=== PATIENT | female | born 1970 | race Caucasian/White ===

== ENCOUNTER 2017-01-17 16:13 | Emergency (ER) | payer MEDICARE, MEDICAID ==
[2017-01-17] MEDS ORDERED: Albuterol/Ipratropium NEB.SOL* Albuterol 2.5 MG/Ipratropium 0.5 MG 3 ML INH ONE (16:48)
--- NOTE | 2017-01-17 17:29 | RAD ---
INDICATION: Cough COMPARISON: Chest x-ray dated September 16, 2016 TECHNIQUE: PA and lateral views of the chest were obtained. FINDINGS: The heart and mediastinum are normal in size and contour. The lungs are grossly clear. There is no evidence of large pleural effusion. Visualized bones are normal for the patient's age. There is no radiographic evidence of free air beneath the diaphragm IMPRESSION: No radiographic evidence of acute cardiopulmonary disease.
--- NOTE | 2017-01-17 17:39 | ED ---
Ana M Ayala Michael, scribed for Wisam Griffiths MD on 01/17/17 at 1700 . Respiratory - HPI Summary HPI Summary: 46 y/o female comes to the ED presenting with a productive cough and SOB for the last 4 days. The pt reports that the sputum is thick and yellow. She also c/ of wheezing and denies fever. The PMHx is significant for COPD. She has a home nebulizer, but the pt has not taken it because she is out of medicine. - History of Current Complaint Chief Complaint: EDShortnessOfBreath Stated Complaint: DIFFICULTY BREATHING Time Seen by Provider: 01/17/17 16:26 Hx Obtained From: Patient, Medical Records Onset/Duration: Gradual Onset, Lasting Days, Still Present Timing: Intermittent Episodes Lasting: Initial Severity: Moderate Current Severity: Moderate Character: Cough (Productive) Sputum Color: Yellow Alleviating Factor(s): Nothing Associated Signs and Symptoms: SOB, Wheezing - Allergy/Home Medications Allergies/Adverse Reactions: Allergies Allergy/AdvReac Type Severity Reaction Status Date / Time Hydromorphone Allergy Unknown Verified 01/17/17 16:28 Reaction Details PMH/Surg Hx/FS Hx/Imm Hx Endocrine/Hematology History: Reports: Hx Diabetes Denies: Hx Anticoagulant Therapy - ON HEPARIN DRIP NOW, Hx Blood Disorders, Hx Blood Transfusions, Hx Bone Marrow Disease, Hx Systemic Lupus Erythematosus, Hx Sickle Cell Disease, Hx Thyroid Disease, Hx Anemia, Hx Unexplained Bleeding, Other Endocrine/Hematological Disorders Cardiovascular History: Reports: Hx Angina, Hx Coronary Artery Disease, Hx Hypercholesterolemia Denies: Hx Aneurysm, Hx Angioplasty, Hx Auto Implanted Cardiovert Defib, Hx Cardiac Arrest, Hx Cardiomegaly, Hx Congenital Heart Disease, Hx Congestive Heart Failure, Hx Deep Vein Thrombosis, Hx Embolism, Hx Hypotension, Hx Hypertension, Hx Pacemaker/ICD, Hx Peripheral Vascular Disease, Hx Rheumatic Fever, Hx Syncope, Hx Valvular Heart Disease Respiratory History: Reports: Hx Chronic Obstructive Pulmonary Disease (COPD) Denies: Hx Asthma, Hx Chronic Bronchitis, Hx Cystic Fibrosis, Hx Lung Cancer , Hx Pleural Effusion, Hx Pneumonia, Hx Pulmonary Edema, Hx Pulmonary Embolism, Hx Seasonal Allergies, Hx Sleep Apnea GI History: Reports: Hx Gall Bladder Disease - HX YAO, Hx Gastroesophageal Reflux Disease, Other GI Disorders - GERD Denies: Hx Cirrhosis, Hx Crohn's Disease, Hx Diverticulosis, Hx Jaundice, Hx Obstructive Bowel, Hx Ileostomy, Hx Pyloric Stenosis, Hx Ulcer Musculoskeletal History: Denies: Hx Arthritis, Hx Osteoporosis Sensory History: Reports: Hx Contacts or Glasses, Hx Vision Problem Denies: Hx Cataracts, Hx Eye Injury, Hx Eye Prosthesis, Hx Glaucoma, Hx Legally Blind, Hx Macular Degeneration, Hx Deafness, Hx Hearing Aid, Hx Hearing Problem, Other Sensory Impairments Opthamlomology History: Reports: Hx Contacts or Glasses, Hx Vision Problem Denies: Hx Cataracts, Hx Eye Injury, Hx Eye Prosthesis, Hx Glaucoma, Hx Legally Blind, Hx Macular Degeneration, Other Sensory Impairments Neurological History: Reports: Hx Headaches - "I have headaches all the time", uses ibuprofen., Hx Transient Ischemic Attacks (TIA) Denies: Hx Dementia, Hx Developmental Delay, Hx Migraine, Hx Nerve Disease, Hx Seizures, Hx Spinal Cord Injury, Other Neuro Impairments/Disorders Psychiatric History: Reports: Hx Depression Denies: Hx Anxiety, Hx Attention Deficit Hyperactivity Disorder, Hx Panic Disorder, Hx Post Traumatic Stress Disorder, Hx Inpatient Treatment, Hx Community Mental Health Tx, Hx Schizophrenia, Hx Bipolar Disorder, Hx of Violent Episodes Against Others, Hx Substance Abuse, Other Psychiatric Issues/ Disorders - Cancer History Hx Chemotherapy: No Hx Radiation Therapy: No Hx Palliative Cancer Treatment: No - Surgical History Surgery Procedure, Year, and Place: [facility]. APPY. TUBAL LIGATION Hx Anesthesia Reactions: No - Immunization History Date of Tetanus Vaccine: Unk Date of Influenza Vaccine: None; became very sick after last flu vaccine Infectious Disease History: No Infectious Disease History: Denies: Hx Clostridium Difficile, Hx Hepatitis, Hx Human Immunodeficiency Virus (HIV), Hx Shingles, Hx Tuberculosis, Hx Known/Suspected VRE, Hx Known/ Suspected VRSA, History Other Infectious Disease, Traveled Outside the [place] in Last 30 Days - Family History Known Family History: Positive: Cardiac Disease, Diabetes, Respiratory Disease - Social History Occupation: Unemployed Lives: With Family Alcohol Use: Occasionally Substance Use Type: Reports: None Smoking Status (MU): Heavy Every Day Tobacco Smoker Type: Cigarettes Amount Used/How Often: 1 PPD Length of Time of Smoking/Using Tobacco: 25 YEARS Have You Smoked in the Last Year: Yes Review of Systems Negative: Fever Positive: Shortness Of Breath, Cough, Other - wheezes All Other Systems Reviewed And Are Negative: Yes Physical Exam Triage Information Reviewed: Yes Vital Signs On Initial Exam: Initial Vitals Temp Pulse Resp BP Pulse Ox 97.8 F 95 21 143/63 92 01/17/17 16:15 01/17/17 16:15 01/17/17 16:15 01/17/17 16:15 01/17/17 16:15 Vital Signs Reviewed: Yes Appearance: Positive: Well-Appearing, No Pain Distress Skin: Positive: Warm, Skin Color Reflects Adequate Perfusion, Dry Head/Face: Positive: Normal Head/Face Inspection Eyes: Positive: Normal ENT: Positive: Normal ENT inspection Neck: Positive: Supple, Nontender Respiratory/Lung Sounds: Positive: Clear to Auscultation, Wheezes Cardiovascular: Positive: RRR Abdomen Description: Positive: Nontender, Soft Bowel Sounds: Positive: Present Musculoskeletal: Positive: Normal Neurological: Positive: Normal Psychiatric: Positive: Affect/Mood Appropriate - Velma Coma Scale Coma Scale Total: 15 Diagnostics - Vital Signs Vital Signs Temp Pulse Resp BP Pulse Ox 01/17/17 16:30 97 14 98 01/17/17 16:29 18 01/17/17 16:28 96 17 97 01/17/17 16:27 122/68 01/17/17 16:15 97.8 F 95 21 143/63 92 - Laboratory Lab Statement: Any lab studies that have been ordered have been reviewed, and results considered in the medical decision making process. Disposition - Course Course Of Treatment: CXR was negative and she will be treated with biaxin, a refill for her home nebulizer and a short steroid course. - Diagnoses Provider Diagnoses: Bronchitis Discharge - Discharge Plan Condition: Stable Disposition: HOME Prescriptions: Albuterol 2.5MG/3ML (0.083%)* [Ventolin 2.5 MG/3 ML NEB.LUCY*] 2.5 mg INH Q4H # 30 neb.lucy Clarithromycin TAB* [Biaxin TAB*] 500 mg PO BID #20 tab Patient Education Materials: Acute Bronchitis (ED) Referrals: Leanne Philip MD [Primary Care Provider] - The documentation as recorded by the Ana M stoner Michael accurately reflects the service I personally performed and the decisions made by me, Wisam Griffiths MD.
[2017-01-17 17:46] VITALS: BP 144/85
== END 2017-01-17 17:44 | disposition home or self-care (01) ==
LOC: ED 16:13
DX: J40 Bronchitis, not specified as acute or chronic (principal); R06.02 Shortness of breath; R05 Cough; F17.210 Nicotine dependence, cigarettes, uncomplicated
CPT/HCPCS: 71020; 94640; 99282; A9270-GY

== ENCOUNTER 2017-07-09 12:10 | Emergency (ER) | payer MEDICARE, MEDICAID ==
[2017-07-09 12:53] LABS: Hematocrit 45 % (35-47); Hemoglobin 15.1 g/dl (12.0-16.0); Mean Corpuscular HGB Conc 34 g/dl (31-36); Mean Corpuscular Hemoglobin 31 pg (27-31); Mean Corpuscular Volume 91 fL (80-97); Mean Platelet Volume 9 um3 (7.4-10.4); Red Blood Count 4.91 10^6/ul (4.0-5.4); Red Cell Distribution Width 14 % (10.5-15); White Blood Count 8.3 10^3/ul (3.5-10.8)
--- NOTE | 2017-07-09 13:32 | RAD ---
HISTORY: Chest pain COMPARISONS: January 17, 2017 VIEWS: 4: Frontal dual-energy and lateral views of the chest. FINDINGS: CARDIOMEDIASTINAL SILHOUETTE: The cardiomediastinal silhouette is normal. DENISHA: The denisha are normal. PLEURA: The costophrenic angles are sharp. No pleural abnormalities are noted. LUNG PARENCHYMA: The lungs are clear. ABDOMEN: The upper abdomen is clear. There is no subphrenic gas. BONES AND SOFT TISSUES: No bone or soft tissue abnormalities are noted. OTHER: None. IMPRESSION: NO ACTIVE CARDIOPULMONARY DISEASE.
[2017-07-09 13:51] LABS: BUN/Creatinine Ratio 18.3 (8-20); Calcium 9.6 mg/dL (8.6-10.3); EGFR Non-African American 88.6 (>60); Globulin 3.2 g/dL (2-4); Potassium 3.7 mmol/L (3.5-5.0); Total Bilirubin 0.7 mg/dL (0.2-1.0); Total Protein 7.2 g/dL (6.4-8.9)
[2017-07-09 14:01] LABS: TSH (Thyroid Stimulating Horm) 0.45 mcIU/mL (0.34-5.60)
[2017-07-09 16:11] VITALS: BP 125/69
--- NOTE | 2017-07-11 12:07 | ED ---
Maximiliano Ayala Benjamin, scribed for Wisam Griffiths MD on 07/09/17 at 1239 . HPI Chest Pain - HPI Summary HPI Summary: 46yo female c/o mid sternal CP for 2 days. Pain radiated to her arms and pt state the pain has been constant for 2 days. Pain resolved today when she was given ASA here at the ED. Pt also reports SOB at night, also nausea and dizziness. Pt has been coughing for month with yellow sputum, and was dx with bronchitis. Pt was first rx with Z-pack 1 month ago, and then 2 days ago was rx ed with Levequin. Pt is a smoker, ans has hx of HTN, HLD, and DM. FHx of lung CA. - History of Current Complaint Chief Complaint: EDGeneral Time Seen by Provider: 07/09/17 12:19 Hx Obtained From: Patient Onset/Duration: Started Days Ago - 2 days, Still Present Timing: Constant Initial Severity: Mild Current Severity: Mild Pain Intensity: 0 Pain Scale Used: 0-10 Numeric Chest Pain Location: Mid Sternal Chest Pain Radiates: Yes Chest Pain Radiates To:: Arm - arms Aggravating Factor(s): Nothing Alleviating Factor(s): OTC Meds Associated Signs and Symptoms: Positive: Dizziness, Shortness of Breath, Nausea , Productive Cough - yellow - Additional Pertinent History Primary Care Physician: [id number] - Allergy/Home Medications Allergies/Adverse Reactions: Allergies Allergy/AdvReac Type Severity Reaction Status Date / Time Hydromorphone Allergy Unknown Verified 01/17/17 16:28 Reaction Details PMH/Surg Hx/FS Hx/Imm Hx Endocrine/Hematology History: Reports: Hx Diabetes Denies: Hx Anticoagulant Therapy - ON HEPARIN DRIP NOW, Hx Blood Disorders, Hx Blood Transfusions, Hx Bone Marrow Disease, Hx Systemic Lupus Erythematosus, Hx Sickle Cell Disease, Hx Thyroid Disease, Hx Anemia, Hx Unexplained Bleeding, Other Endocrine/Hematological Disorders Cardiovascular History: Reports: Hx Angina, Hx Coronary Artery Disease, Hx Hypercholesterolemia Denies: Hx Aneurysm, Hx Angioplasty, Hx Auto Implanted Cardiovert Defib, Hx Cardiac Arrest, Hx Cardiomegaly, Hx Congenital Heart Disease, Hx Congestive Heart Failure, Hx Deep Vein Thrombosis, Hx Embolism, Hx Hypotension, Hx Hypertension, Hx Pacemaker/ICD, Hx Peripheral Vascular Disease, Hx Rheumatic Fever, Hx Syncope, Hx Valvular Heart Disease Respiratory History: Reports: Hx Chronic Obstructive Pulmonary Disease (COPD) Denies: Hx Asthma, Hx Chronic Bronchitis, Hx Cystic Fibrosis, Hx Lung Cancer , Hx Pleural Effusion, Hx Pneumonia, Hx Pulmonary Edema, Hx Pulmonary Embolism, Hx Seasonal Allergies, Hx Sleep Apnea GI History: Reports: Hx Gall Bladder Disease - HX YAO, Hx Gastroesophageal Reflux Disease, Other GI Disorders - GERD Denies: Hx Cirrhosis, Hx Crohn's Disease, Hx Diverticulosis, Hx Jaundice, Hx Obstructive Bowel, Hx Ileostomy, Hx Pyloric Stenosis, Hx Ulcer Musculoskeletal History: Denies: Hx Arthritis, Hx Osteoporosis Sensory History: Reports: Hx Contacts or Glasses, Hx Vision Problem Denies: Hx Cataracts, Hx Eye Injury, Hx Eye Prosthesis, Hx Glaucoma, Hx Legally Blind, Hx Macular Degeneration, Hx Deafness, Hx Hearing Aid, Hx Hearing Problem, Other Sensory Impairments Opthamlomology History: Reports: Hx Contacts or Glasses, Hx Vision Problem Denies: Hx Cataracts, Hx Eye Injury, Hx Eye Prosthesis, Hx Glaucoma, Hx Legally Blind, Hx Macular Degeneration, Other Sensory Impairments Neurological History: Reports: Hx Headaches - "I have headaches all the time", uses ibuprofen., Hx Transient Ischemic Attacks (TIA) Denies: Hx Dementia, Hx Developmental Delay, Hx Migraine, Hx Nerve Disease, Hx Seizures, Hx Spinal Cord Injury, Other Neuro Impairments/Disorders Psychiatric History: Reports: Hx Depression Denies: Hx Anxiety, Hx Attention Deficit Hyperactivity Disorder, Hx Panic Disorder, Hx Post Traumatic Stress Disorder, Hx Inpatient Treatment, Hx Community Mental Health Tx, Hx Schizophrenia, Hx Bipolar Disorder, Hx of Violent Episodes Against Others, Hx Substance Abuse, Other Psychiatric Issues/ Disorders - Cancer History Hx Chemotherapy: No Hx Radiation Therapy: No Hx Palliative Cancer Treatment: No - Surgical History Surgery Procedure, Year, and Place: YAO. APPY. TUBAL LIGATION Hx Anesthesia Reactions: No - Immunization History Date of Tetanus Vaccine: Unk Date of Influenza Vaccine: None; became very sick after last flu vaccine Infectious Disease History: No Infectious Disease History: Denies: Hx Clostridium Difficile, Hx Hepatitis, Hx Human Immunodeficiency Virus (HIV), Hx Shingles, Hx Tuberculosis, Hx Known/Suspected VRE, Hx Known/ Suspected VRSA, History Other Infectious Disease, Traveled Outside the [place] in Last 30 Days - Family History Known Family History: Positive: Cardiac Disease, Diabetes, Respiratory Disease, Other - lung CA - Social History Occupation: Unemployed Lives: With Family Alcohol Use: Occasionally Substance Use Type: Reports: None Smoking Status (MU): Heavy Every Day Tobacco Smoker Type: Cigarettes Amount Used/How Often: 1 PPD Length of Time of Smoking/Using Tobacco: 25 YEARS Have You Smoked in the Last Year: Yes Review of Systems Constitutional: Negative Eyes: Negative ENT: Negative Positive: Chest Pain Positive: Shortness Of Breath, Cough Gastrointestinal: Negative Genitourinary: Negative Musculoskeletal: Negative Skin: Negative Neurological: Negative Psychological: Normal All Other Systems Reviewed And Are Negative: Yes Physical Exam Triage Information Reviewed: Yes Vital Signs On Initial Exam: Initial Vitals Temp Pulse Resp BP Pulse Ox 97.5 F 96 20 130/74 94 07/09/17 12:15 07/09/17 12:15 07/09/17 12:15 07/09/17 12:15 07/09/17 12:15 Vital Signs Reviewed: Yes Appearance: Positive: Well-Appearing, No Pain Distress, Well-Nourished Skin: Positive: Warm, Skin Color Reflects Adequate Perfusion, Dry Head/Face: Positive: Normal Head/Face Inspection Eyes: Positive: Normal, EOMI, GIDEON ENT: Positive: Normal ENT inspection, Hearing grossly normal Neck: Positive: Supple, Nontender Respiratory/Lung Sounds: Positive: Clear to Auscultation, Breath Sounds Present Cardiovascular: Positive: RRR, Pulses are Symmetrical in both Upper and Lower Extremities Abdomen Description: Positive: Nontender, Soft Bowel Sounds: Positive: Present Musculoskeletal: Positive: Normal, Strength/ROM Intact Neurological: Positive: Sensory/Motor Intact, Alert, Oriented to Person Place, Time Psychiatric: Positive: Affect/Mood Appropriate - Velma Coma Scale Coma Scale Total: 15 Diagnostics - Vital Signs Vital Signs Temp Pulse Resp BP Pulse Ox 07/09/17 12:22 99 95 07/09/17 12:21 102 96 07/09/17 12:20 133/78 07/09/17 12:15 97.5 F 96 20 130/74 94 - Laboratory Lab Results: Lab Results 07/09/17 07/09/17 07/09/17 Range/Units 12:38 12:38 12:38 WBC 8.3 (3.5-10.8) 10^3/ul RBC 4.91 (4.0-5.4) 10^6/ul Hgb 15.1 (12.0-16.0) g/dl Hct 45 (35-47) % MCV 91 (80-97) fL MCH 31 (27-31) pg MCHC 34 (31-36) g/dl RDW 14 (10.5-15) % Plt Count 238 (150-450) 10^3/ul MPV 9 (7.4-10.4) um3 Neut % (Auto) 49.0 (38-83) % Lymph % (Auto) 39.4 (25-47) % [place] % (Auto) 5.7 (1-9) % Eos % (Auto) 4.8 (0-6) % Baso % (Auto) 1.1 (0-2) % Absolute Neuts (auto) 4.1 (1.5-7.7) 10^3/ul Absolute Lymphs (auto) 3.3 (1.0-4.8) 10^3/ul Absolute Monos (auto) 0.5 (0-0.8) 10^3/ul Absolute Eos (auto) 0.4 (0-0.6) 10^3/ul Absolute Basos (auto) 0.1 (0-0.2) 10^3/ul Absolute Nucleated RBC 0.01 10^3/ul Nucleated RBC % 0.1 INR (Anticoag Therapy) 0.91 (0.89-1.11) D-Dimer, Quantitative < 200 (Less Than 230) ng/mL Sodium 131 L (133-145) mmol/L Potassium 3.7 (3.5-5.0) mmol/L Chloride 98 L (101-111) mmol/L Carbon Dioxide 24 (22-32) mmol/L Anion Gap 9 (2-11) mmol/L BUN 13 (6-24) mg/dL Creatinine 0.71 (0.51-0.95) mg/dL Est GFR ( Amer) 114.0 (>60) Est GFR (Non-Af Amer) 88.6 (>60) BUN/Creatinine Ratio 18.3 (8-20) Glucose 285 H (70-100) mg/dL Lactic Acid (0.5-2.0) mmol/L Calcium 9.6 (8.6-10.3) mg/dL Total Bilirubin 0.70 (0.2-1.0) mg/dL AST 12 L (13-39) U/L ALT 13 (7-52) U/L Alkaline Phosphatase 101 (34-104) U/L Troponin I 0.00 (<0.04) ng/mL Total Protein 7.2 (6.4-8.9) g/dL Albumin 4.0 (3.2-5.2) g/dL Globulin 3.2 (2-4) g/dL Albumin/Globulin Ratio 1.3 (1-3) TSH 0.45 (0.34-5.60) mcIU/mL Beta HCG, Quant 2.44 mIU/mL 07/09/17 07/09/17 Range/Units 12:38 15:26 WBC (3.5-10.8) 10^3/ul RBC (4.0-5.4) 10^6/ul Hgb (12.0-16.0) g/dl Hct (35-47) % MCV (80-97) fL MCH (27-31) pg MCHC (31-36) g/dl RDW (10.5-15) % Plt Count (150-450) 10^3/ul MPV (7.4-10.4) um3 Neut % (Auto) (38-83) % Lymph % (Auto) (25-47) % [place] % (Auto) (1-9) % Eos % (Auto) (0-6) % Baso % (Auto) (0-2) % Absolute Neuts (auto) (1.5-7.7) 10^3/ul Absolute Lymphs (auto) (1.0-4.8) 10^3/ul Absolute Monos (auto) (0-0.8) 10^3/ul Absolute Eos (auto) (0-0.6) 10^3/ul Absolute Basos (auto) (0-0.2) 10^3/ul Absolute Nucleated RBC 10^3/ul Nucleated RBC % INR (Anticoag Therapy) (0.89-1.11) D-Dimer, Quantitative (Less Than 230) ng/mL Sodium (133-145) mmol/L Potassium (3.5-5.0) mmol/L Chloride (101-111) mmol/L Carbon Dioxide (22-32) mmol/L Anion Gap (2-11) mmol/L BUN (6-24) mg/dL Creatinine (0.51-0.95) mg/dL Est GFR ( Amer) (>60) Est GFR (Non-Af Amer) (>60) BUN/Creatinine Ratio (8-20) Glucose (70-100) mg/dL Lactic Acid 1.9 (0.5-2.0) mmol/L Calcium (8.6-10.3) mg/dL Total Bilirubin (0.2-1.0) mg/dL AST (13-39) U/L ALT (7-52) U/L Alkaline Phosphatase (34-104) U/L Troponin I 0.00 (<0.04) ng/mL Total Protein (6.4-8.9) g/dL Albumin (3.2-5.2) g/dL Globulin (2-4) g/dL Albumin/Globulin Ratio (1-3) TSH (0.34-5.60) mcIU/mL Beta HCG, Quant mIU/mL Result Diagrams: 07/09/17 12:38 07/09/17 12:38 Lab Statement: Any lab studies that have been ordered have been reviewed, and results considered in the medical decision making process. - Radiology CXR Xray Interpretation: No Acute Changes Radiology Interpretation Completed By: Radiologist - ED physician has reviewed the radiology report and agrees with the findings. - EKG 1232. Cardiac Rate: Tachycardia - 102bpm EKG Rhythm: Sinus Tachycardia ST Segment: Non-Specific Chest Pain Course/Dx - Course Course Of Treatment: Reviewed pts list of medications and allergies. Blood pressure noted. Assessment/Plan: Ms. Dill presented with two days of CP and her W/U and PE were nonrevealing. She is stable and pain-free at D/C. - Diagnoses Provider Diagnoses: Chest pain Discharge - Discharge Plan Condition: Stable Disposition: HOME Patient Education Materials: Chest Pain (ED) Referrals: [facility] [Outside] Non Staff,Doctor [Primary Care Provider] - The documentation as recorded by the Maximiliano stoner Benjamin accurately reflects the service I personally performed and the decisions made by me, Wisam Griffiths MD.
== END 2017-07-09 16:12 | disposition home or self-care (01) ==
LOC: ED 12:10
DX: R07.9 Chest pain, unspecified (principal); R42 Dizziness and giddiness; R06.02 Shortness of breath; R11.0 Nausea; R05 Cough; F17.210 Nicotine dependence, cigarettes, uncomplicated
CPT/HCPCS: 36415; 71020; 80053; 83605; 84443; 84484; 84702; 85025; 85379; 85610; 93005; 99282

== ENCOUNTER 2018-07-02 21:23 | Inpatient (IN) | payer MEDICAID, OTHER ==
[2018-07-02] MEDS ORDERED: Iodixanol* (CONTRAST) 320 MG/ML 100 ML SDV IV ONE (21:24)
--- NOTE | 2018-07-02 21:27 | ED ---
Neurological HPI - HPI Summary HPI Summary: This patient is a 47 year old F presenting to [facility] with a chief complaint of FND since 2029. LKW 1999. Per her daughter, the patient eating dinner with daughter at 1999. At 2029, the patient was playing a video game sitting on the couch, and daughter heard commotion but did was not present; she came to check on the pt, and she was slumped over on the couch and unresponsive. 2 mg Narcan given en route with no sx alleviation. PMHx DM (sugar 180 per EMS), CAD ( cardiac stent). Rx ASA and Lyrica. Luisito melton called [id number]. LEVEL 5 CAVEAT: Full HPI unobtainable due to pt's extremis. - History of Current Complaint Stated Complaint: LUISITO MELTON Time Seen by Provider: 07/02/18 21:24 Hx Obtained From: Family/Zumba Instructor, EMS Hx From Patient Unobtainable Due To: Extremis Onset/Duration: Sudden Onset, Started hours ago, Still Present Timing: Constant Onset Severity: Severe Current Severity: Severe Neurological Deficit Location: Generalized - left worse than right Character: Motor Weakness, Paralysis, Sensory Loss, Impaired Speech, Responsiveness Episode Lasting: Hours Syncope Context: Witnessed, Loss of Consciousness: Yes, At Rest Syncope Location: All Extremities Aggravating: Unknown, Bright Lights - possible, was allegedly playing video games at sx onset. Alleviating: Nothing Associated Signs and Symptoms: Positive: Loss of Consciousness, Decreased Level of Consciousness, AMS, Impaired Speech TPA Considered: Yes Related Hx: ASA - Allergy/Home Medications Allergies/Adverse Reactions: Allergies Allergy/AdvReac Type Severity Reaction Status Date / Time codeine Allergy Itching Verified 07/03/18 07:46 hydromorphone Allergy Unknown Verified 07/03/18 08:00 Reaction Details PMH/Surg Hx/FS Hx/Imm Hx Endocrine/Hematology History: Reports: Hx Diabetes Denies: Hx Sickle Cell Disease Cardiovascular History: Reports: Hx Coronary Artery Disease - Social History Lives: With Family - Additional Comments History Additional Comments: Level 5 caveat: Full Hx unobtainable due to patient extremis. Review of Systems - ROS Summary Review of Systems Summary: LEVEL 5 CAVEAT: Full ROS unobtainable due to patient extremis. Positive: Decreased ROM Neurological: Other - hemiplegia (L). Decreased level of responsiveness Positive: Syncope All Other Systems Reviewed And Are Negative: No Physical Exam - Summary Physical Exam Summary: VITAL SIGNS: Reviewed. GENERAL: Patient is a well-developed and nourished female who is lying comfortable in the stretcher. Patient is not in any acute respiratory distress. Patient is lethargic. HEAD AND FACE: No signs of trauma. No ecchymosis, hematomas or skull depressions. No sinus tenderness. EYES: PERRLA, EOMI x 2, No injected conjunctiva, no nystagmus. EARS: Hearing grossly intact. Ear canals and tympanic membranes are within normal limits. MOUTH: Oropharynx within normal limits. NECK: Supple, trachea is midline, no adenopathy, no JVD, no carotid bruit, no c- spine tenderness, neck with full ROM. CHEST: Symmetric, no tenderness at palpation LUNGS: Clear to auscultation bilaterally. No wheezing or crackles. CVS: Regular rate and rhythm, S1 and S2 present, no murmurs or gallops appreciated. ABDOMEN: Soft, non-tender. No signs of distention. No rebound no guarding, and no masses palpated. Bowel sounds are normal. EXTREMITIES: FROM in all major joints, no edema, no cyanosis or clubbing. NEURO: Opens her eyes, NIH 27. SKIN: Dry and warm Triage Information Reviewed: Yes Vital Signs Reviewed: Yes Completion Of Physical Exam Limited Due To: Extremis, Level 5 - [place] Coma Scale Best Eye Response: 4 - Spontaneous Best Motor Response: 6 - Obeys Commands Best Verbal Response: 5 - Oriented Coma Scale Total: 15 Diagnostics - Laboratory Result Diagrams: 07/03/18 06:00 07/03/18 06:00 Lab Statement: Any lab studies that have been ordered have been reviewed, and results considered in the medical decision making process. - CT Brain CT Interpretation: No Acute Changes CT Interpretation Completed By: Radiologist - No acute intracranial abnormality. Dr. Montez has reviewed this report. CTA head/neck CT Interpretation: No Acute Changes CT Interpretation Completed By: Radiologist - Mildly atherosclerotic nonstenotic right internal carotid artery. Otherwise normal head CTA. Dr. Montez has reviewed this report. NIH Scale - NIH Scale Level of Consciousness: Responds to Minor Stimulation Ask Patient the Month and His/Her Age: Neither Correct/Aphasic Ask Pt to Open/Close Eyes and Spiral Winder/Release Non-Paretic Hand: Neither Correctly Best Gaze (Only Horizontal Eye Movement): Normal Visual Field Testing: No Visual Loss Facial Paresis-Pt to Smile & Close Eyes or Grimace Symmetry: Normal/Symmetrical Motor Function - Right Arm: Effort Against [place] Motor Function - Left Arm: No Movement Motor Function - Right Leg: Effort Against [place] Motor Function - Left Leg: No Movement Limb Ataxia-Must be out of Proportion to Weakness Present: Present in Two Limbs Sensory (Use Pinprick to Test Arms/Legs/Trunk/Face): Severe to Total Loss Best Language (Describe Picture, Name Items): Mute/Global Aphasia Dysarthria (Read Several Words): Unintelligible or Mute Extinction and Inattention: Inattention Total Score: 27 Course/Dx - Course Course Of Treatment: LUISITO MELTON CALLED 2119 Assessment/Plan: This patient is a 47-year-old female who presents to the emergency room via ambulance with a chief complaint of having unresponsive episode. As per EMS the patient was seen well at approximately 8 PM while she was playing video game. At approximately 8:30 she was found to be unresponsive and flaccid and leaning to the left side. The patient was given Narcan by EMS with no response. Therefore the patient was brought into the emergency department for further workup and management. As per EMS the patient has history of diabetes and coronary artery disease status post stent. At arrival the patient is able to open her eyes but she is unable to speak. The patient seems to be mute at this point. The patient has minimal movement in the right upper extremity right lower extremity. The left side is flaccid. The NIH score is equal to 27. Chest x-ray is negative for acute pathology. Luisito singh was called. I discussed the case with Dr. Garner from neurology at [place] and he is interviewing the patient. At this point the amount unable to get any collateral information. There is no family members present. After Dr. Turcios assessment he recommends for the patient to be given TPA. Head CT impression: Negative for acute pathology. CTA of head and neck: Please see report as above. Patient was given TPA and the patient continues to be hemodynamically stable. Dr. Garner recommends for the patient to be admitted to the ICU services at [facility] for further workup and management. At this time I discussed my physical exam, findings and test results with Dr. Ochoa from the hospital services and she accepted the patient for admission. - Diagnoses Provider Diagnoses: Ischemic cerebrovascular accident (CVA) During the Visit The Following Alert/Code Occurred: Code Melton - 2120 - Physician Notifications Discussed Care Of Patient With: Jun Garner Time Discussed With Above Provider: 21:30 Instructed by Provider To: Other - Agrees to teleconference. - Critical Care Time Critical Care Time: 75-104 min Discharge - Sign-Out/Discharge Documenting (check all that apply): Patient Departure - Admit - Discharge Plan Condition: Fair Disposition: ADMITTED TO [facility] - Billing Disposition and Condition Condition: FAIR Disposition: Admitted to [facility] - Attestation Statements Document Initiated by Scribe: Yes Documenting Scribe: Nicolas Metcalf Provider For Whom Scribe is Documenting (Include Credential): Dr. Isaiah Montez MD Scribe Attestation: Nicolas Ayala, scribed for Dr. Isaiah Montez MD on 07/03/18 at 1549. Scribe Documentation Reviewed: Yes Provider Attestation: The documentation as recorded by the scribNicolas guzman accurately reflects the service I personally performed and the decisions made by , Dr. Isaiah Montez MD Consult Consult: Dr. Garner 2145: Recommends TPA 2213 Dr. Garner: Recommends admission at [facility] to hospitalist. [address]16 Dr. Ochoa: Accepts admission.
--- NOTE | 2018-07-02 21:36 | RAD ---
EXAM: CT Head Without Intravenous Contrast EXAM DATE/TIME: 07/02/2018 9:29 PM CLINICAL HISTORY: 47 years old, female; Signs and symptoms; Alteration of consciousness; Syncope and collapse; Additional info: Neurological changes/code singh TECHNIQUE: Axial computed tomography images of the head/brain without intravenous contrast. All CT scans at this facility use at least one of these dose optimization techniques: automated exposure control; mA and/or kV adjustment per patient size (includes targeted exams where dose is matched to clinical indication); or iterative reconstruction. COMPARISON: No relevant prior studies available. FINDINGS: Brain: Unremarkable. No hemorrhage. No significant white matter disease. No edema. Ventricles: Unremarkable. No ventriculomegaly. Bones/joints: Unremarkable. No acute fracture. Soft tissues: Unremarkable. Sinuses: Unremarkable as visualized. No acute sinusitis. Mastoid air cells: Unremarkable as visualized. No mastoid effusion. IMPRESSION: No acute intracranial abnormality.
[2018-07-02 21:53] LABS: ABS Basophils 0.1 10^3/ul (0-0.2); ABS Eosinophils 0.3 10^3/ul (0-0.6); ABS Lymphocytes 2.8 10^3/ul (1.0-4.8); ABS Monocytes 0.6 10^3/ul (0-0.8); ABS Neutrophils 3.5 10^3/ul (1.5-7.7); ABS Nucleated RBC 0 10^3/ul; Eosinophil % 4.7 % (0-6); Hematocrit 39 % (35-47); Hemoglobin 13.7 g/dl (12.0-16.0); Mean Corpuscular HGB Conc 35 g/dl (31-36); Mean Corpuscular Hemoglobin 32 pg (27-31); Mean Corpuscular Volume 90 fL (80-97); Nucleated Red Blood Cells % 0.1; Platelet Count 235 10^3/ul (150-450); Red Blood Count 4.31 10^6/ul (4.00-5.40); Red Cell Distribution Width 14 % (10.5-15); White Blood Count 7.3 10^3/ul (3.5-10.8)
[2018-07-02] MEDS ORDERED: ALTEPLASE IV ONE ×4 (22:00→22:03)
--- NOTE | 2018-07-02 22:07 | RAD ---
EXAM: CT Angiography Head With Intravenous Contrast CLINICAL HISTORY: 47 years old, female; Signs and symptoms; Syncope and collapse; Additional info: Right side weakness TECHNIQUE: Axial computed tomographic angiography images of the head with intravenous contrast using CT angiography protocol. All CT scans at this facility use at least one of these dose optimization techniques: automated exposure control; mA and/or kV adjustment per patient size (includes targeted exams where dose is matched to clinical indication); or iterative reconstruction. 3D and MIP reconstructed images were created and reviewed. CONTRAST: 80 mL of VISIPAQUE 320 administered intravenously. COMPARISON: No relevant prior studies available. FINDINGS: Right internal carotid artery: Mildly atherosclerotic right internal carotid artery in the cavernous segment without stenosis. Right anterior cerebral artery: Normal. No occlusion or significant stenosis. No aneurysm. Right middle cerebral artery: Normal. No occlusion or stenosis. No aneurysm. Right posterior cerebral artery: Normal. No occlusion or significant stenosis. No aneurysm. Right vertebral artery: The right vertebral artery terminates as the right PICA. Otherwise widely patent. Left internal carotid artery: Normal. Intracranial segment is patent with no stenosis. No aneurysm. Left anterior cerebral artery: Normal. No occlusion or stenosis. No aneurysm. Left middle cerebral artery: Normal. No occlusion or stenosis. No aneurysm. Left posterior cerebral artery: Normal. No occlusion or stenosis. No aneurysm. Left vertebral artery: Normal as visualized. Basilar artery: Normal. No occlusion or stenosis. No aneurysm. Brain: No abnormal brain enhancement. IMPRESSION: Mildly atherosclerotic nonstenotic right internal carotid artery. Otherwise normal head CTA. EXAM: CT Angiography Neck With Intravenous Contrast CLINICAL HISTORY: 47 years old, female; Signs and symptoms; Syncope and collapse; Additional info: Right side weakness TECHNIQUE: Axial computed tomographic angiography images of the neck with intravenous contrast using CT angiography protocol. All CT scans at this facility use at least one of these dose optimization techniques: automated exposure control; mA and/or kV adjustment per patient size (includes targeted exams where dose is matched to clinical indication); or iterative reconstruction. MIP reconstructed images were created and reviewed. CONTRAST: 80 mL of VISIPAQUE 320 administered intravenously. 80 mL of VISIPAQUE 320 administered intravenously. COMPARISON: No relevant prior studies available. FINDINGS: VASCULATURE: Right common carotid artery: Normal. No stenosis. No dissection or occlusion. Right internal carotid artery: Minimally atherosclerotic right internal carotid artery at the origin with no stenosis. Right external carotid artery: Normal. No occlusion. Right vertebral artery: Normal. No significant stenosis. No dissection or occlusion. Left common carotid artery: Mildly atherosclerotic the left common carotid artery at the origin with no stenosis. Left internal carotid artery: Normal. Intracranial segment is patent with no stenosis. No aneurysm. Left external carotid artery: Normal. No occlusion. Left vertebral artery: Normal. No significant stenosis. No dissection or occlusion. NECK: Bones/joints: No acute fracture. No dislocation. Soft tissues: Normal as visualized. No mass. Thyroid: Several small low attenuating thyroid lobe nodules none of which are calcified. Largest in the inferior left thyroid lobe measures 0.4 cm. CAROTID STENOSIS REFERENCE USING NASCET CRITERIA: % ICA stenosis = (1 - narrowest ICA diameter/diameter of distal cervical ICA) x 100. Mild - <50% stenosis. Moderate - 50-69% stenosis. Severe - 70-94% stenosis. Near occlusion - 95-99% stenosis. Occluded - 100% stenosis. IMPRESSION: Minimally atherosclerotic right internal and mildly sclerotic left common carotid arteries without stenosis. Otherwise normal neck CTA.
[2018-07-02 22:10] LABS: EGFR Non-African American 103.2 (>60)
[2018-07-02 22:15] LABS: INR 0.84 (0.77-1.02)
[2018-07-02] MEDS: NS 0.9% 1000 ML* 1,000 ML IV ONE ×2 (22:18→22:58)
[2018-07-02] MEDS ORDERED: NS 0.9% 1000 ML* 1,000 ML IV ONE (23:05)
[2018-07-02] MEDS ORDERED: Acetaminophen TAB* 325 MG PO PRN (23:05)
[2018-07-02] MEDS ORDERED: Dextrose 50% Syringe 50 ML* 25 GM/50 ML SYRINGE IV PUSH PRN (23:08)
[2018-07-02] MEDS ORDERED: Albuterol 2.5 MG/3 ML NEB.SOL* (0.083%) INH PRN (23:17)
[2018-07-03] MEDS: NS 0.9% 1000 ML* 1,000 ML IV SCH ×2 (00:15→00:41)
[2018-07-03] MEDS: KCL 10 MEQ/50 ML IVPREMIX* 10 MEQ/50 ML BAG IV SCH ×2 (00:58→05:32)
--- NOTE | 2018-07-03 03:59 | HP ---
CC: Dr. Lee Hui; Dr. Valadez * HISTORY AND PHYSICAL: DATE OF ADMISSION: 07/02/18 PRIMARY CARE PROVIDER: Dr. Lee Hui. CONSULTING NEUROLOGIST: Dr. Valadez. ATTENDING PROVIDER: Danni Ochoa MD* (DICTATED BY WILBERT VASQUEZ NP) CHIEF COMPLAINT: 1. Altered mental status. 2. Questionable syncope. HISTORY OF PRESENT ILLNESS: Mrs. Dill is a 47-year-old female patient. She has quite an extensive history. She is diabetic. She has a history of COPD. She has a history of neuropathy, history of TIA. She has a history of CAD, cervical cancer, hypertension, hyperlipidemia and history of migraines. She is coming in to our emergency department today. Last thing that she remembers is that she was sitting at her computer playing a game. Next thing she knew was someone was over her trying to wake her. She denied, prior to going down, having any chest or having any shortness of breath or any abdominal pain. She denied having any facial drooping, trouble with speech. She denied having any weakness to one arm. There were no reports of incontinence of the urine or her bowels. She is really unclear what happened and unfortunately, there was no family here to give us more story or more history that was present. Someone had summoned 911 and she was brought into the hospital. When she got here and exam was performed by the ER provider, it was noted that she had significant deficit on her left side. Erick melton was called. [facility] was consulted and they recommend tPA for which the patient did receive. Because of this, we are asked to evaluate for admission. Again, there have been no recent reports of medication changes. There has been no reports of any fevers, chills, nausea, vomiting, or diarrhea. No chest pain and the biggest complaint was that she fell out of her chair and was noted on the floor. She was having again an episode where she may have fainted and she just remembers waking up someone trying to get her to awaken. PAST MEDICAL HISTORY: Significant for: 1. Diabetes. 2. COPD. 3. Neuropathy. 4. TIA. 5. CAD. 6. Cervical cancer. 7. Hypertension. 8. Hyperlipidemia. 9. Migraine. PAST SURGICAL HISTORY: 1. The patient has had heart catheterization. 2. Laparoscopic cholecystectomy. 3. ERCP. 4. Appendectomy. 5. Tubal ligation. HOME MEDICATIONS: They are unknown at this point. She know she takes Cymbalta and Lyrica and she knows that she is taking medication for diabetes, but we will need to touch base with her pharmacy in the morning. I did consult [facility] , but unfortunately I do not have any last records from there from 2014, so we will need to touch base with her pharmacy or her PCP in the morning for clarification. ALLERGIES TO MEDICATIONS: Include DILAUDID. FAMILY HISTORY: Her mother was diabetic and had lung cancer. Her father had a history of arthritis. SOCIAL HISTORY: She is a pack a day smoker. She rarely drinks alcohol. She has 3 children. Her surrogate decision maker is her boyfriend, Augustine. REVIEW OF SYSTEMS: There is no documented fever. She denies having any significant weight change. There was no double vision. She denies having any ear discharge. She denied having any rhinorrhea. There was no sore throat. No thyroid enlargement. She denied having any chest pain. There was no orthopnea. There was no nocturnal dyspnea. She denied having any abdominal pain. There was no nausea or vomiting. There was no dysuria. There was no frequency. Again, there was question of seizure, possible loss of consciousness. Review of 14 systems completed and all others negative. PHYSICAL EXAMINATION GENERAL: At this time, Mrs. Dill is a 47-year-old female patient. She is chronically ill appearing. She appears to be older than stated age. VITAL SIGNS: Blood pressure 131/74, pulse 96, respirations 15, O2 sat 98%, temperature 98.1. HEENT: Head, atraumatic, normocephalic. Eyes: EOMs are intact. Her sclerae was anicteric and not pale. Throat: Oral mucosa appears to be moist. No oropharyngeal erythema. NECK: Supple. LUNGS: Clear to auscultation bilaterally. No wheezes, rales, or rhonchi. HEART: Sounds S1, S2. She had a regular rate and rhythm. There were no murmurs, rubs, or gallops. ABDOMEN: Soft, flat, nontender. Bowel sounds were present. EXTREMITIES: Pulses were 2+ throughout. She can move the right side with 5/5 strength. Left lower extremity, she has dense hemiplegia on the left side, but pulses are intact and there is no edema. NEUROLOGIC: She is awake, alert. She is oriented x3. She does have a subtle facial droop on the right side. She cannot raise the left shoulder. She has a left pronator drift. She has weakness to the left lower extremity. She cannot lift the leg against gravity. Sensation is intact. She does have nystagmus to the left on exam. She had [id number] on the right side, but [id number] on the left, there was ataxia. She had [id number] on the right, but not heel- to-woods on the left. Again, she was noted to have dense hemiplegia on the left side, no facial droop. SKIN: Intact. DIAGNOSTIC STUDY/LABORATORY DATA: WBC of 7.3, RBC of 4.01, hemoglobin of 13.7 , hematocrit of 39, platelet count of 235. The INR was 0.84. PTT of 26.3. The sodium was 136, potassium was 3.4, chloride of 102, bicarb was 27, BUN 15, creatinine of 0.62, glucose of 132. Lactic 2.2. Calcium 9.2. Total bili was 0.4, AST 9, ALT 9, alk phos 97, CK pending, troponin 0.01. Albumin of 3.5. She had a head CTA obtained today, impression: Mild atherosclerotic nonstenotic right internal carotid artery, otherwise normal CTA. She had a brain CT obtained today, which showed no acute intracranial abnormality. There was a chest x-ray, which showed and in my impression no acute infiltrates were noted. There was a EKG obtained today showing a normal sinus rhythm. She had a flattened T waves in lead I, aVL, and also in V5. She had a QTc of 524 and no previous EKG for comparison. Old medical records were reviewed. ASSESSMENT AND PLAN: Mrs. Dill is a 47-year-old female patient with multiple vascular risk factors coming into the ED today with an abnormal story for stroke , but she did state that she was on the ground. We were asked to evaluate for admission. She will be admitted under inpatient status for: 1. Left-sided weakness, presumed cerebrovascular accident possible Andrea's paralysis. Again, she had altered mental status. She may have had a syncopal episode. She may have had a seizure. She could have had a stroke. She did receive tPA. I would go ahead and check lipids, A1c, brain MRI, EEG, frequent neuro checks. I have ordered an echo with bubble study and we will restart aspirin 24 hours after the patient's tPA was given. Certainly, this could be a Andrea's paralysis in the setting of seizure. I am also checking a urine tox and an alcohol level on the patient and we will continue to follow. I will also made her n.p.o. and on bed rest given the recent tPA with frequent vitals, frequent neuro checks. CT in 24 hours from now. We will get a Speech evaluation tomorrow and PT/OT evaluation when we are able to ambulate the patient. 2. Diabetes. We will continue her on lispro sliding scale. 3. Chronic obstructive pulmonary disease. I have ordered p.r.n. albuterol. We need to get her med list. 4. Neuropathy. Continue with supportive care and pain management. We will need to get her med list when able. 5. History of transient ischemic attack. We will consider starting secondary prevention when we have a better med list and at this point, she received tPA, so there will be no aspirin or Plavix given with the at least 74 hours. 6. Coronary artery disease. Again, we will need to clarify meds, but I assume she is probably on a beta-celia and statin. I do not have these list. So, I need to get this. We are holding aspirin for time being. 7. Cervical cancer. Follow up with PCP. 8. History of hypertension. In the setting of possible cerebrovascular accident, I would like to try to keep the systolic blood pressure greater than 130. She is 139/74 currently. We will keep the head of the bed flat as well. 9. Hyperlipidemia. We are checking lipid panel. We will start statin when able. 10. History of migraines. Continue her current medical regimen. 11. DVT prophylaxis. I have ordered SCDs. 12. Code status. Full code. 13. Fluids, electrolytes, and nutrition. She is n.p.o. TIME SPENT: Time spent on the admission, critical care time was 60 minutes; greater than half the time was spent [id number] with the patient obtaining my history and physical, other half time was spent going over the plan of care with the patient and implementing plan of care. I did discuss the plan of care with my attending, Dr. Ochoa, she is in agreement. WILBERT VASQUEZ, CONTOUR STITCHER [id number]/[facility] #: [id number] [facility]ERNON HOSPITALRoberta
[2018-07-03] MEDS ORDERED: Potassium Chloride LIQUID* 20 MEQ PACKET PO ONE (04:50)
[2018-07-03] MEDS: Insulin LISPRO* 1 UNITS UNIT SUBCUT SCH ×6 (05:34→21:13)
[2018-07-03 06:29] LABS: INR 0.8 (0.77-1.02)
[2018-07-03 06:40] LABS: Hematocrit 38 % (35-47); Hemoglobin 13.2 g/dl (12.0-16.0); Mean Corpuscular HGB Conc 35 g/dl (31-36); Mean Corpuscular Hemoglobin 31 pg (27-31); Mean Corpuscular Volume 90 fL (80-97); Red Blood Count 4.22 10^6/ul (4.00-5.40); Red Cell Distribution Width 13 % (10.5-15); White Blood Count 7.9 10^3/ul (3.5-10.8)
[2018-07-03 06:58] LABS: ABS Basophils 0.1 10^3/ul (0-0.2); ABS Eosinophils 0.5 10^3/ul (0-0.6); ABS Lymphocytes 3.7 10^3/ul (1.0-4.8); ABS Monocytes 0.5 10^3/ul (0-0.8); ABS Neutrophils 3.1 10^3/ul (1.5-7.7); ABS Nucleated RBC 0 10^3/ul; Eosinophil % 5.8 % (0-6); Lymphocyte % 47.5 % (25-47); Mean Platelet Volume 8.7 um3 (7.4-10.4); Nucleated Red Blood Cells % 0.1; Platelet Count 206 10^3/ul (150-450)
--- NOTE | 2018-07-03 08:01 | RAD ---
Indication: Code singh Comparison: July 09, 2017 Technique: Upright AP 2214 hours Report: Mild prominence of interstitial markings. Negative for focal pulmonary lesion, pleural effusion, or pneumothorax. Negative for cardiomegaly. Unremarkable central pulmonary vasculature and mediastinal contours. Pyelographic phase contrast visualized at the bilateral kidneys without evidence for hydronephrosis. The contrast is from the preceding CT angiogram of the head and neck performed at 2100 hours. IMPRESSION: #. No evidence for acute intrathoracic disease. R0
[2018-07-03] MEDS ORDERED: Insulin LISPRO* 1 UNITS UNIT SUBCUT ONE (08:15)
[2018-07-03] MEDS ORDERED: DULoxetine DR CAP* 30 MG CAP.DR PO SCH (09:00)
[2018-07-03] MEDS: Pregabalin CAP(*) 100 MG PO SCH ×2 (13:07→21:04)
--- NOTE | 2018-07-03 14:35 | ECHO ---
Patient: KAMILLA LOPEZ [facility] Rec#: [id number] : 1970 Date: 07/03/2018 Age: 47y Height: 147 cm / 57.9 in Weight: 70.3 kg / 154.9 lbs Sex: F BSA: 1.63 Room#: [id number] Admit Date#: 07/02/2018 Type: Inpatient Referring: Yves Ahmadi NP Reading: Bladimir Way MD Aerodynamics Engineer: Daniella Gaston RDCS Transthoracic Echocardiogram Indication: CVA BP: 119/70 HR: 88 Rhythm: NSR Findings History: CAD with PCI, HTN, DM, TIA, cervical cancer, COPD, smoker. Technical Comments: The study quality is fair. The study is technically limited due to poor parasternal windows. Completed at 1200. Left Ventricle: The left ventricular chamber size is normal. There is no left ventricular hypertrophy. Global left ventricular wall motion and contractility are within normal limits. There is normal left ventricular systolic function. The estimated ejection fraction is 55-60%. There is no consistent Doppler evidence of clinically significant diastolic dysfunction. Left Atrium: The left atrial chamber size is normal. Right Ventricle: The right ventricular cavity size is normal. The right ventricular global systolic function is normal. Right Atrium: The right atrial cavity size is normal. Interatrial septum appears intact without evidence of shunting. The bubble study is negative. A patent foramen ovale is not demonstrated with color Doppler and agitated contrast. Aortic Valve: The aortic valve is trileaflet. The aortic valve leaflets are mildly thickened. There is a trace of aortic regurgitation. There is no evidence of aortic stenosis. Mitral Valve: There is mitral annular calcification. The mitral valve leaflets are mildly thickened. There is mild mitral regurgitation. There is no evidence of mitral stenosis. Tricuspid Valve: The tricuspid valve leaflets are normal. There is trace tricuspid regurgitation. Unable to estimate the right ventricular systolic pressure. There is no tricuspid stenosis. Pulmonic Valve: The pulmonic valve appears normal. There is a trace pulmonic regurgitation. There is no pulmonic stenosis. Pericardium: There is no significant pericardial effusion. Aorta: There is no dilatation of the ascending aorta. There is no dilatation of the aortic arch. The aortic root is normal in size. Pulmonary Artery: The main pulmonary artery is not well visualized. Venous: The inferior vena cava appears normal in size. There is a greater than 50% respiratory change in the inferior vena cava dimension. Contrast: Normal saline was used as contrast for the bubble study. Images 90 and 91. Intravenous contrast was used to help determine presence of intracardiac shunting. Summary: There was not any prior study for comparison. Conclusions The estimated ejection fraction is 55-60%. The bubble study is negative. A patent foramen ovale is not demonstrated with color Doppler and agitated contrast. The aortic valve leaflets are mildly thickened. There is a trace of aortic regurgitation. The mitral valve leaflets are mildly thickened. There is mild mitral regurgitation. There is trace tricuspid regurgitation. Measurements Name Value Normal Range RVIDd (AP) 2D 2.5 cm (0.9 - 2.6) RVDdMajor (2D) 3.2 cm (2.2 - 4.4) RAd ISD 4CH 4.4 cm (3.4 - 4.9) RA (A4C)W 3.5 cm (2.9 - 4.6) IVSd (2D) 0.7 cm (0.6 - 1) LVPWd (2D) 0.8 cm (0.6 - 1) LVIDd (2D) 4 cm (3.6 - 5.4) LVIDs (2D) 3 cm - LV FS (2D) 25 % (25 - 45) Aortic Annulus 1.6 cm (1.4 - 2.6) Ao root diameter (2D) 2.5 cm (2.1 - 3.5) Ascending Ao 3 cm (2.1 - 3.4) Aortic arch 2.4 cm (1.8 - 3.4) LA dimension (AP) 2D 3.2 cm (2.3 - 3.8) LAd ISD 4CH 5.2 cm (2.9 - 5.3) LA ISD 4CH W 3.7 cm (2.5 - 4.5) Name Value Normal Range LA ESV BP (A/L) index 21 ml/m2 - Name Value Normal Range MV E-wave Vmax 0.8 m/sec - MV deceleration time 144 msec - MV A-wave Vmax 0.7 m/sec - MV E:A ratio 1.2 ratio - LV septal e' Vmax 0.09 m/sec - LV lateral e' Vmax 0.12 m/sec - LV E:e' septal ratio 8.89 ratio - LV E:e' lateral ratio 6.67 ratio - Name Value Normal Range AV Vmax 1 m/sec - AV VTI 19.2 cm - AV peak gradient 4 mmHg - AV mean gradient 2 mmHg - LVOT Vmax 0.9 m/sec - LVOT VTI 18.9 cm - LVOT peak gradient 3 mmHg - LVOT mean gradient 2 mmHg - PRATIBHA Vmax 0.6 m/sec - Name Value Normal Range IVC diameter 1.6 cm - Name Value Normal Range PV Vmax 1 m/sec - PV peak gradient 4 mmHg -
--- NOTE | 2018-07-03 14:40 | PN ---
Subjective Date of Service: 07/03/18 Interval History: Patient is feeling at baseline today. No weakness. No CP, SOB, N/V, abdominal pain, diarrhea, F/C, dizziness, tremor, or other pain. Patient has not recently stopped any medications. Patient states that her blood sugar was initially very elevated and she took 38u Humalog. Patient did not eat afterwards and rechecked her sugar with it being at 70. Patient at that time felt hypoglycemic and ate dinner. Patient then tried to play a game on the computer and passed out. Patient has been having similar episodes several times in the last year as well as having episodes in between with milder hypoglycemia where she gets irritable. Family History: Unchanged from Admission Social History: Unchanged from Admission Past Medical History: Unchanged from Admission Objective Active Medications: Acetaminophen (Tylenol Tab*) 650 mg PO Q4H PRN PRN Reason: FEVER/PAIN Albuterol (Ventolin 2.5 Mg/3 Ml Neb.Allegra*) 2.5 mg INH Q2H PRN PRN Reason: SOB/WHEEZING Atorvastatin Calcium (Lipitor*) 80 mg PO 1700 [facility] Dextrose (D50w Syringe 50 Ml*) 12.5 gm IV PUSH .FOR FS < 60 - SS PRN PRN Reason: FS < 60 Duloxetine HCl (Cymbalta Cap*) 30 mg PO DAILY [facility] Last Admin: 07/03/18 13:07 Dose: 30 mg Insulin Human Lispro (Humalog*) 0 units SUBCUT ACHS [facility]; Protocol Last Admin: 07/03/18 13:05 Dose: 3 units Pregabalin (Lyrica Cap(*)) 200 mg PO BID [facility] Last Admin: 07/03/18 13:07 Dose: 200 mg Vital Signs - 8 hr 07/03/18 07/03/18 07:43 11:42 Temperature 97.4 F 98.2 F Oxygen Devices in Use Now: None Appearance: Patient is a 47yo female who appears stated age and is sitting in the bed in [facility]. Eyes: No Scleral Icterus Ears/Nose/Mouth/Throat: NL Teeth, Lips, Gums, Clear Oropharnyx, Mucous Membranes Moist Neck: NL Appearance and Movements; NL JVP, Trachea Midline Respiratory: Symmetrical Chest Expansion and Respiratory Effort, Clear to Auscultation Cardiovascular: NL Sounds; No Murmurs; No JVD, RRR, No Edema Abdominal: NL Sounds; No Tenderness; No Distention, No Hepatosplenomegaly Lymphatic: No Cervical Adenopathy Extremities: No Edema, No Clubbing, Cyanosis Skin: No Rash or Ulcers, No Nodules or Sclerosis Neurological: Alert and Oriented x 3, NL Sensation, NL Muscle Strength and Tone , - - CN II-XII intact. Normal reflexes and cerebellar testing. Result Diagrams: 07/03/18 06:00 07/03/18 06:00 Microbiology and Other Data: Microbiology 07/03/18 00:35 Nasal Screen MRSA (PCR) - Final Nasal Mrsa Not Detected Assess/Plan/Problems-Billing Assessment: Patient is a 47yo female with a PMH for DM II, COPD, TIA, HTN, who presents with sudden LOS and weakness who received TPA and has no residual neurological deficits. - Patient Problems (1) Weakness Current Visit: Yes Status: Acute Code(s): R53.1 - WEAKNESS SNOMED Code(s) : 47974640 Comment: - S/P TPA for unilateral weakness and AMS. - No residual deficits - Patient had an episode of relative hypoglycemia before LOC - Possible low BG caused LOC and possible seizure. EEG negative. - Unremarkable workup to date. EEG and CT negative - MRI W W/O tomorrow (2) COPD (chronic obstructive pulmonary disease) Current Visit: Yes Status: Acute Code(s): J44.9 - CHRONIC OBSTRUCTIVE PULMONARY DISEASE, UNSPECIFIED SNOMED Code(s): 79964113 Comment: - No Exacerbation (3) Neuropathy Current Visit: Yes Status: Acute Code(s): G62.9 - POLYNEUROPATHY, UNSPECIFIED SNOMED Code(s): 676505309 Comment: - Continue Lyrica and Duloxetine (4) CAD (coronary artery disease) Current Visit: No Status: Acute Code(s): I25.10 - ATHSCL HEART DISEASE OF HOPI CORONARY ARTERY W/O ANG PCTRS SNOMED Code(s): 64773370 Comment: - History of stent - Antiplatelets on hold due to TPA - No Chest pain (5) Diabetes Current Visit: No Status: Acute Code(s): E11.9 - TYPE 2 DIABETES MELLITUS WITHOUT COMPLICATIONS SNOMED Code(s): 09564448 Comment: - SSI and Carb counting - Difficult to control - Hemoglobin A1c pending - Nutrition consult (6) DVT prophylaxis Current Visit: No Status: Acute Code(s): HOI7100 - SNOMED Code(s): 841380974 Comment: - Start tomorrow due to TPA. Status and Disposition: Inpatient
[2018-07-03] MEDS ORDERED: Gadoteridol* (CONTRAST) 279.3 MG/ML 10 ML IV ONE (15:20)
--- NOTE | 2018-07-03 15:59 | RAD ---
HISTORY: Seizure protocol COMPARISONS: CT dated July 02, 2018 TECHNIQUE: The following sequences were obtained of the head: Sagittal T1-weighted images, axial T2-weighted images, axial FLAIR images, axial susceptibility weighted images, axial T1-weighted images, coronal T1, T2 and FLAIR images through the mesial temporal lobes. Additionally, axial diffusion-weighted images were obtained with calculated apparent diffusion coefficients. Additionally, sagittal and axial T1 weighted images with thin section coronal T1-weighted images through the mesial temporal lobes were obtained after contrast enhancement with a gadolinium-based intravenous contrast agent. FINDINGS: HEMORRHAGE/INFARCT: There is no hemorrhage or acute infarct. MASSES/SHIFT: There is no mass or shift. EXTRA-AXIAL SPACES/MENINGES: There are no extra-axial fluid collections. SULCI AND VENTRICLES: The sulci and ventricles are normal in size and position for the patient's stated age. CEREBRUM: There are no focal brain parenchymal abnormalities. The mesial temporal lobes are symmetric in size, architecture, and signal intensity. The collateral white matter bundles are symmetric. The mamillary bodies and temporal horns of the lateral ventricles are symmetric in size. There is no appreciable cortical dysplasia or heterotopia. BRAINSTEM: There are no focal parenchymal abnormalities. CEREBELLUM: There are no focal parenchymal abnormalities. The cerebellar tonsils are normal in size and position. SELLA: The sella is normal. PINEAL: The pineal region is clear. CP ANGLE/TEMPORAL BONES: The labyrinthine structures are grossly normal. VESSELS: Normal flow-voids are noted within the visualized vertebral vasculature. DIFFUSION ABNORMALITIES: There are no diffusion abnormalities. PARANASAL SINUSES/MASTOIDS: The paranasal sinuses are clear. ORBITS: The orbits are unremarkable. BONES AND SOFT TISSUE: No bone or soft tissue abnormalities are noted. OTHER: There is no abnormal enhancement. IMPRESSION: 1. THE MESIAL TEMPORAL LOBES ARE SYMMETRIC. THERE IS NO APPRECIABLE CORTICAL DYSPLASIA OR HETEROTOPIA. 2. NO RESTRICTED DIFFUSION TO SUGGEST ACUTE INFARCT.
[2018-07-03] MEDS ORDERED: Atorvastatin* 80 MG TAB PO SCH (17:00)
--- NOTE | 2018-07-03 19:10 | CONS ---
CONSULTATION REPORT: DATE OF CONSULT: 07/03/18 CONSULTING PROVIDER: Yves Ahmadi NP REASON FOR CONSULT: Suspected stroke. CHIEF COMPLAINT: "I had a TIA." HISTORY OF PRESENT ILLNESS: Ms. Iveth Dill is a 47-year-old right-handed female with a history of diabetes, hypertension, and peripheral neuropathy, who reports frequent history of mini strokes. Her last event was 1 year ago. She has stereotypical spells that consist of staring, can barely move, she sees people but she is unable to communicate. This occurs once every 3-4 months. Yesterday's episode was the longest. She was sitting on her computer playing a game when suddenly she can hear her daughter, but she was having trouble communicating. This occurred at 5:30 p.m. She was last seen normal at 5 p.m. where she ate dinner. She stated that she checked her blood glucose at 2:30 p.m. , which was up in the 400 range. She took her insulin and then rechecked her blood glucose at 5 p.m. which was 79. The patient stated that is very low for her. She usually runs in the high 200s and mid 300s. She had dinner after checking her glucose at 5 p.m. and then went on to play the computer game. The episode lasted approximately a few minutes, but then she can hear her daughter yelling out her name and calling EMS as she was not responding. She denied any convulsions, tongue biting, or impairment in her bowel or bladder functions. After she came back to her normal self, her left side was weak. There were some reports of left facial droop. She was rushed to the ED via EMS, where she was evaluated by Teleneurology at the [facility]. She was deemed a candidate for IV tPA. She was given IV tPA at 2211. This morning, the patient is back to her normal self. She has no focal neurological deficits other than a slight facial asymmetry. The patient usually has dentures , but she refuses to wear them. She is aspirin naive. The patient has no history of meningitis or encephalitis. She has no history of seizures. She has had head trauma in the past. She denied any febrile seizures. She denied any family history of epilepsy. The patient also stated that she has headaches right before these events. She has been having these events for the last 2 years. She has never been evaluated by a neurologist in the outpatient setting. Currently, she denied any headaches. She denied any focal weakness or paresthesias. PAST MEDICAL HISTORY: COPD, diabetes mellitus for 7 years, diabetic peripheral neuropathy, cervical cancer, hypertension, dyslipidemia, migraine headache. PAST SURGICAL HISTORY: Coronary artery disease with catheterization, lap cholecystectomy, ERCP, appendectomy, tubal ligation. MEDICATIONS: 1. Humalog. 2. Cymbalta. 3. Lyrica 200 mg twice daily. 4. Ramipril which she does not take. SOCIAL HISTORY: She smokes 1 pack per day for over 20 years. She has 3 children. She drinks alcohol only during New Years. REVIEW OF SYSTEMS: A 14-point review of systems was obtained and otherwise negative except for what was mentioned in the HPI. PHYSICAL EXAM: Vitals: Temperature of 97.4, heart rate 91, respiratory rate of 12, oxygen saturation 94, blood pressure of 119/70. General: Well-nourished , well- developed female, in no acute distress. Alert and cooperative, and appears stated age. Head: Normocephalic without any obvious abnormality. Eyes : Conjunctivae/corneas are clear. Neck is supple and symmetrical with no carotid bruit. Lungs are clear to auscultation bilaterally. Nonlabored breathing. Cardiovascular: Regular rate and rhythm. Normal S1, S2. Extremities: Normal range of motion with no cyanosis. Skin: No skin lesions or laceration. Psych: Affect is broad and normal mood. Neurological Examination: Mental Status: Awake, alert, and oriented to person, place, time , and general circumstances. Speech and language including expression, naming, and repetition were assessed and found to be normal. Cranial Nerves: Normal confrontation testing bilaterally. Pupils are mid range and reactive to light. Normal consensual response. Sensation is intact on forehead, cheeks, and jaw region bilaterally. She does not have a facial droop, but there is widening of the palpebral fissure on the left side. She is able to hear throughout the history process. She has symmetrical palatal elevation. She has normal strength against shoulder shrug resistance. Tongue is symmetrical and midline with no atrophy or fasciculation. Motor Examination: Right/left, no abnormal movements. No pronator drift. Normal bulk and tone throughout. No fasciculation. Neck extension is 5. Shoulder range of motion is normal. Shoulder abduction, extension; finger flexion, extension, abduction; hip flexion , abduction; knee flexion and extension; ankle dorsiflexion, plantar flexion all 5/5. Reflexes: Right/Left: Brachioradialis 1/1, biceps 1/1, triceps 1/1, patella 1/1, ankle 0/0, plantar flexor/flexor. Sensation is intact to light touch, temperature, and pinprick throughout. Reduced vibration at the toes to 7 seconds on the right and 6 seconds on the left. Proprioception is intact. Coordination: Normal finger-to- nose and rapid alternating movement. Gait: Narrow-based and normal stance and gait. DIAGNOSTIC STUDIES/LAB DATA: The patient's WBC 7.9, hemoglobin 13.2, hematocrit 38, platelets 206. Sodium 136, potassium 3.8, chloride 107, carbon dioxide 22, BUN 12, creatinine 0.47, glucose of 218, lactic acid of 2.2. LDL of 101, total cholesterol 208, triglycerides 378. Serum alcohol level is less than 10. The patient had a CT head without contrast completed on 07/02/18 that was personally reviewed. There is no acute intracranial abnormality. She also had a CTA head and neck, 07/02/18, that showed normal head CTA, but she did have mild atherosclerotic disease in the carotids bilaterally. ASSESSMENT AND PLAN: Ms. Iveth Dill is a 47-year-old female who has history of hypertension, dyslipidemia, and longstanding uncontrolled diabetes, who presented to [facility] with an episode of word-finding difficulty, headache, followed by left hemiparesis/hemiparesthesia. The patient had a Teleneurology consultation and was deemed a candidate for IV tPA therapy due to suspected stroke. She received tPA and has had no complications. Her neurological symptoms have resolved. Given the recurrent stereotypical episodes that she has had over the last 2 years, I am concerned that the patient may be having focal partial seizures with secondary generalization and possible Andrea's paralysis. Of course, stroke is still on the differential, but it is uncommon for her being right-handed to have word-finding difficulty and then followed by left hemiparesis. It just does not localize appropriately unless she did not have aphasia and was anarthric. Other differential diagnosis includes complicated migraine headaches. I do agree with obtaining an MRI of the brain. I have changed the MRI to with/without contrast, seizure protocol. We will also obtain an EEG to evaluate for any epileptiform discharges. She is on a good dose of Lyrica, which should help if she was having seizures. She is compliant to Lyrica. Another differential diagnosis to consider would be hypoglycemia, but her blood glucose did not significantly drop, but may be is on the lower range for her. She has been started on atorvastatin 80 mg nightly. We will start her on an aspirin after the repeat CT head if it shows no intracranial hemorrhage. Please repeat the CT head tonight after 24 hours of tPA. Continue neuro checks every 4 hours. She is in ICU. If the CT head tonight is normal, she can transfer out to the tele floor. No need for PT/OT/OLIVE GROWER since the patient is asymptomatic at this point. She does have slight widening of the palpebral fissure on the left side, but this can be chronic. I cannot appreciate any facial asymmetry on examination today. Continue to hold all antithrombotic agents. DVT prophylaxis with SCDs. Blood pressure range systolic between 120 to less than 180. Keep her blood glucose within normal range between 100-200. We are still pending a 2D echo with bubble study. TIME SPENT: I spent a total of 75 minutes and greater than 50% was spent directly reviewing the medical chart, obtaining history, examining the patient, education, counseling, and discussing the treatment plan as mentioned above. Dr. Witt will be covering the neurology service starting tomorrow. Please contact us for any questions or concerns. [id number]/CPS #: [id number] MTDD
[2018-07-03] MEDS: DULoxetine DR CAP* 30 MG CAP.DR PO SCH (21:04)
--- NOTE | 2018-07-04 00:30 | RAD ---
EXAM: CT Head Without Intravenous Contrast CLINICAL HISTORY: 47 years old, female; Signs and symptoms; Alteration of consciousness; Transient alteration of awareness; Additional info: F/u tpa TECHNIQUE: Axial computed tomography images of the head/brain without intravenous contrast. All CT scans at this facility use at least one of these dose optimization techniques: automated exposure control; mA and/or kV adjustment per patient size (includes targeted exams where dose is matched to clinical indication); or iterative reconstruction. COMPARISON: No relevant prior studies available. FINDINGS: Brain: No intracranial hemorrhage or extra-axial fluid collection. No evidence of mass effect or midline shift. Mendoza-white matter differentiation is normal. Ventricles: Unremarkable. No ventriculomegaly. Bones/joints: Unremarkable. No acute fracture. Soft tissues: Unremarkable. Sinuses: Unremarkable as visualized. No acute sinusitis. Mastoid air cells: Unremarkable as visualized. No mastoid effusion. IMPRESSION: No acute intracranial pathology.
[2018-07-04 05:58] LABS: ABS Basophils 0.1 10^3/ul (0-0.2); ABS Eosinophils 0.4 10^3/ul (0-0.6); ABS Lymphocytes 3.2 10^3/ul (1.0-4.8); ABS Monocytes 0.5 10^3/ul (0-0.8); ABS Neutrophils 3.8 10^3/ul (1.5-7.7); ABS Nucleated RBC 0 10^3/ul; Eosinophil % 5.6 % (0-6); Hematocrit 39 % (35-47); Hemoglobin 13.7 g/dl (12.0-16.0); Lymphocyte % 39.9 % (25-47); Mean Corpuscular HGB Conc 35 g/dl (31-36); Mean Corpuscular Hemoglobin 31 pg (27-31); Mean Corpuscular Volume 90 fL (80-97); Mean Platelet Volume 8.8 um3 (7.4-10.4); Nucleated Red Blood Cells % 0.2; Platelet Count 242 10^3/ul (150-450); Red Blood Count 4.37 10^6/ul (4.00-5.40); Red Cell Distribution Width 14 % (10.5-15); White Blood Count 7.9 10^3/ul (3.5-10.8)
[2018-07-04] MEDS ORDERED: Magnesium Sulf 4 GM/100 ML IV* 4,000 MG/100 ML BAG IVPB ONE (07:13)
[2018-07-04] MEDS: DULoxetine DR CAP* 30 MG CAP.DR PO SCH (07:47)
[2018-07-04] MEDS: Pregabalin CAP(*) 100 MG PO SCH (07:48)
[2018-07-04] MEDS: Insulin LISPRO* 1 UNITS UNIT SUBCUT SCH ×4 (09:03→13:26)
[2018-07-04] MEDS ORDERED: Aspirin EC TAB* 81 MG TAB.EC PO SCH (13:00)
[2018-07-04 13:06] VITALS: BP 121/64
--- NOTE | 2018-07-06 03:39 | DS ---
CC: Dr. Lee Hui * DISCHARGE SUMMARY: DATE OF ADMISSION: 07/02/18 DATE OF DISCHARGE: 07/04/18 PRIMARY CARE PROVIDER: Lee Hui, DO MY ATTENDING WHILE IN THE HOSPITAL: Karin Muñoz MD * (DICTATED BY DYLON BALLARD) PRIMARY DISCHARGE DIAGNOSES: 1. Brittle diabetes mellitus, type 2. 2. Unilateral weakness with TPA administration. SECONDARY DISCHARGE DIAGNOSES: 1. Hypertension. 2. Chronic obstructive pulmonary disease. 3. Neuropathy. 4. History of transient ischemic attack. 5. History of coronary artery disease. 6. History of cervical cancer. STUDIES DONE WHILE IN THE HOSPITAL: Chest x-ray from 07/02/18 read as no evidence for acute intrathoracic disease. Brain CT from 07/02/18 read as no acute intracranial abnormality. Head CTA from 07/02/18 read as minimally atherosclerotic right internal and mid sclerotic left common carotid arteries without stenosis, otherwise normal CTA. Electrocardiogram shows normal sinus rhythm, no ST segment abnormalities, no atrial fibrillation. Transthoracic echocardiogram from 07/02/18 read as estimated ejection fraction 55% to 60%. Bubble Study is negative. PFO was not demonstrated with color Doppler or agitated contrast, aortic valve leaflets are mildly thickened. There is trace aortic regurgitation. Mitral valve leaflets are mildly thickened. There is mild mitral regurgitation. There is trace tricuspid regurgitation. Brain MRI from 07/03/18 with and without contrast read as mesial temporal lobes are symmetric. There is no appearance of cortical dysplasia or heterophoria. No restricted diifusion to suggest acute infarct. Brain CT from 07/03/18 read as no intracranial pathology. MEDICATIONS AT DISCHARGE: 1. Fluoxetine 30 mg p.o. b.i.d. 2. Humalog 38 units subcutaneous b.i.d. 3. Pregabalin 200 mg p.o. b.i.d. 4. Tylenol 650 mg p.o. q.4 hours as needed. 5. Aspirin 81 mg p.o. daily. 6. Lipitor 80 mg p.o. daily. 7. Tresiba FlexTouch 30 units subcutaneous q.p.m. HOSPITAL COURSE: This is a brief summary of the patient's presentation. For more details, please see the history and physical from Yves Ahmadi NP on . In brief, the patient is a 47-year-old female with a past medical history significant for the above who presents to the emergency department after sitting at her computer and playing game and then suddenly losing consciousness. The patient early that evening has significantly elevated blood sugar above 400 per her report. She then took her 38 units of NovoLog for the evening, but did not eat afterwards. The patient then took her blood sugar later and noted that to be around 70. The patient then ate her dinner quickly and attempted to play again on the computer and passed out. The patient was confused when she woke up and was brought in to the hospital. The patient was seen by the emergency room physician as well as the Tele Medicine neurologist from [facility] and was noted to have significant left- sided weakness and altered mental status. The patient was given TPA per protocol. The patient had no adverse events from this. The patient had no recent illnesses. The patient had been having several episodes like this throughout the course of her hospitalization. The patient was seen in consultation by Dr. Saran Valadez of Neurology. The patient's neurologic deficits quickly resolved. The patient believes this may have been related to metabolic abnormalities such as hypoglycemia or seizure. The patient had an EGD which showed no epileptiform discharges. The patient was monitored in the ICU for post TPA protocol. The patient continued to have no neurologic deficits. The patient's blood sugar was moderately well controlled while in the hospital on sliding scale insulin. The patient had a low magnesium, which was replaced. The patient had no significant vital sign abnormalities. The patient had a repeat head, brain CT as above, which showed no intracranial bleeding. The patient had no other signs of bleeding. The patient has no other significant laboratory abnormalities. The patient was stable and amenable for discharge to home on , to follow up with her primary care provider. PHYSICAL EXAMINATION ON THE DAY OF DISCHARGE: General: The patient is a 47- year- old female who appears stated age and sitting comfortably in the bed, in no acute distress. HEENT: Head: Normocephalic, atraumatic. Sclerae anicteric. No conjunctival injection. Nasal mucosa is moist. Oral mucosa is moist. No pharyngeal erythema, discharge, or exudate. Neck: Supple, nontender. No lymphadenopathy. No carotid bruits auscultated. No JVD. Cardiac : Regular rate and rhythm. No clicks, murmurs, gallops, or rubs. Pulses 2+ in the bilateral dorsalis pedis, posterior tibialis, and radial areas. Respiratory: Clear to auscultation bilaterally. No wheezes, rales, or rhonchi. Good air exchange bilaterally. Abdomen: Soft, nontender, nondistended. Bowel sounds present. Normoactive in all 4 quadrants. No hepatosplenomegaly. No abdominal bruits auscultated. No hepatojugular reflux. Skin: Clean, dry, intact. No rash. Neuro: Cranial nerves II through XII intact. No focal deficits. Alert and oriented x3. Psychiatric: Pleasant and cooperative. LABORATORY DATA ON DAY OF DISCHARGE: White blood cell count 7.9, hemoglobin 13.7, hematocrit 39, platelet count 242. Sodium 134, potassium 4.1, chloride 103, carbon dioxide 25, anion gap 6, BUN 11, creatinine 0.54, glucose 246. Calcium 9.6. Magnesium 1.6. DISCHARGE PLAN: The patient will be discharged to home. The patient will follow up closely with her primary care provider for management of her blood glucose to avoid hyper and hypoglycemia, as appears she has been having. It is likely that the wide swings in her blood glucose are the reason for her syncope and they have provoked a seizure resulting in Andrea's paralysis and the patient' s weakness. The patient was previously on insulin pump, restarting this should be considered for more consistent control of the patient's blood glucose. The patient should return to the hospital for repeat episodes, new weakness, chest pain, shortness of breath, or alarming symptoms. If the patient continues to have episodes, further monitoring for seizures or other epileptiform discharges should be entertained. The patient should have a consistent carbohydrate diet and engage in activity as tolerated. TIME SPENT: Approximately 60 minutes was spent on the discharge of this patient , 30 of which was spent [id number] with the patient obtaining history and physical and discussing treatment plan. DYLON BALLARD [id number]/[facility] #: [id number] IDRIS
--- NOTE | 2018-07-06 03:55 | EEG ---
ELECTROENCEPHALOGRAPHY: DATE OF SERVICE: 07/03/18 - ROOM #[id number] DATE READ: 07/03/18 TIME OF TRACIN:49-10:14. CLINICAL PROBLEM: Mrs. Iveth Dill is a 47-year-old female with history of staring spells and word finding difficulty. This EEG was obtained to evaluate for any epileptiform abnormalities. CLINICAL STATE: Awake and sleep. REPORT: The waking background showed appropriate organization with clearly defined anterior-posterior voltage and frequency gradients. There was a well- defined posterior dominant rhythm of 9 Hz that was symmetrical and showed normal reactivity. Anteriorly, there was an expected pattern of lower voltage, irregular, mixed faster frequencies. Attenuation to occipital rhythm accompanied drowsiness. There were sleep spindle and K complexes seen throughout the recording suggesting stage II sleep. Single- electrode EKG showed a sinus rhythm at a rate of 97 beats per minute. Throughout the recording, there were no epileptiform discharges or electrographic seizures. IMPRESSION: This is a normal awake and sleep EEG. There were no epileptiform discharges. Normal interictal EEG does not exclude nor support the diagnosis of epilepsy. Clinical correlation is recommended. [id number]/[facility] #: [id number] [facility]
== END 2018-07-04 14:50 | disposition home or self-care (01) | DRG 861 ==
LOC: EDBD → ED 21:23 → MERGE 22:56 → ICU 22:56 → MEDTELE 07-04 02:37
PROVIDERS: ADMIT Hospitalist; ATTEND Internal Medicine
DX: R53.1 Weakness (principal); I25.10 Atherosclerotic heart disease of native coronary artery without angina pectoris; Z95.5 Presence of coronary angioplasty implant and graft; Z88.5 Allergy status to narcotic agent; R29.727 NIHSS score 27; J44.9 Chronic obstructive pulmonary disease, unspecified; Z86.73 Personal history of transient ischemic attack (TIA), and cerebral infarction without residual deficits; E11.649 Type 2 diabetes mellitus with hypoglycemia without coma; E11.40 Type 2 diabetes mellitus with diabetic neuropathy, unspecified; Z85.41 Personal history of malignant neoplasm of cervix uteri; I10 Essential (primary) hypertension; E78.5 Hyperlipidemia, unspecified; G43.909 Migraine, unspecified, not intractable, without status migrainosus; Z90.49 Acquired absence of other specified parts of digestive tract; Z90.89 Acquired absence of other organs; Z98.51 Tubal ligation status; Z88.8 Allergy status to other drugs, medicaments and biological substances; Z83.3 Family history of diabetes mellitus; Z80.1 Family history of malignant neoplasm of trachea, bronchus and lung; Z82.61 Family history of arthritis; F17.210 Nicotine dependence, cigarettes, uncomplicated; I65.23 Occlusion and stenosis of bilateral carotid arteries; I08.1 Rheumatic disorders of both mitral and tricuspid valves; Z79.4 Long term (current) use of insulin; Z79.82 Long term (current) use of aspirin
CPT/HCPCS: 36415; 70450; 70496; 70498; 70553; 71045; 80048; 80053; 80061; 80320; 82550; 83036; 83605; 83721; 83735; 84484; 85025; 85610; 85730; 86850; 86900; 86901; 87641; 93005; 93306; 95819; 99285; A9270-GY; A9579; G0480; J2997; J3475; J3480; Q9967

== ENCOUNTER 2019-11-26 11:40 | Emergency (ER) | payer MEDICARE, OTHER ==
--- OUTSIDE RECORDS SUMMARY | 2019-11-26 11:56 | XMS REPORT | Summary of Care ---
:1970 Author Organization [facility] Address [address] [address] Care Team Providers Name Role Phone Vijay Montgomery MD Primary Care Provider Reason for Visit Reason Comments Wound Encounter Details Date Type Department Care Team Description 09/29/2019 Office Visit [facility] Brennan Justice, Wound of right leg, Wound Care & MD subsequent encounter Hyperbaric Medicine [address] (Primary Dx) [address] [place] [address] [place] [address] [phone] Allergies Active Allergy Reactions Severity Noted Date Comments Hydromorphone Rash High 08/28/2019 Pt states breaks out and becomes itchy documented as of this encounter (statuses as of 09/29/2019) Medications Medication Sig Dispensed Refills Start Date End Date Status ASPIRIN 81 PO Take by mouth. 0 Active Pregabalin (LYRICA) 200 Take 150 mg by 0 Active MG Oral Cap mouth TWICE DAILY. duloxetine (CYMBALTA) 30 Take 30 mg by 0 Active MG Oral CAPSULE ENTERIC mouth TWICE COATED PARTICLES DAILY. hydrOXYzine Pamoate 100 Take 100 mg by 0 Active MG Oral Cap mouth THREE TIMES DAILY NEEDED. Oxycodone HCl 10 MG Oral Take 10 mg by 0 Active Tab mouth EVERY EIGHT HOURS NEEDED (As needed for pain). ciprofloxacin Take 250 mg by 0 09/21/2019 Active (CIPROFLOXACIN mouth TWICE DISCHARGE) 250 MG Oral DAILY. 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 Sepsis 08/27/2019 COPD (chronic obstructive pulmonary disease) 08/27/2019 Acute blood loss anemia 08/27/2019 Hypokalemia 08/27/2019 Hyperglycemia 08/27/2019 DM (diabetes mellitus) 08/27/2019 Overview: Non-compliant with insulin pump documented as of this encounter (statuses as of 09/29/2019) Social History Tobacco Use Types Packs/Day Years Used Date Heavy Tobacco Smoker Cigarettes 0.5 40 Started: 10/13/1978 Smokeless Tobacco: Never Used Sex Assigned at Date Recorded Not on file Job Start Date Occupation Industry Not on file Not on file Not on file Travel History Travel Start Travel End No recent travel history available. documented as of this encounter Last Filed Vital Signs Vital Sign Reading Time Taken Comments Blood Pressure 135/63 09/29/2019 9:45 AM EST Pulse 88 09/29/2019 9:45 AM EST Temperature 36.8 09/29/2019 9:45 AM EST C (98.2 F) Respiratory Rate - - Oxygen Saturation - - Inhaled Oxygen Concentration - - Weight - - Height - - Body Mass Index - - documented in this encounter Patient Instructions Patient InstructionsEmma Hernández RN - 09/29/2019 9:15 AM ESTWound Care Orders Please follow these instructions for wound care until your next scheduled visit. For questions, contact the Wound Care Center at the [facility] at [phone], Friday - Friday, 7:30 AM - 4:30 PM. You may take a shower before dressing change. Keep dressing in place during shower and do dressing change after. Apply 40% zinc oxide around the wound. Cover wound bed with silver alginate. Cover with dry gauze and optilock. Optilock will help contain the drainage. Cover all with a dry, protective dressing. Keep dressing clean, dry and intact. We will see you for your follow-up visit at the Wound Care Center. It was a pleasure being your nurse today! Your Channel Program Manager, Emma Hernández RN documented in this encounter Progress Notes Justice Amin MD - 09/29/2019 9:15 AM EST PATIENT: Iveth Dill : 1970 DATE OF SERVICE: 09/29/2019 REFERRING PRACTITIONER: Justice Amin PRIMARY CARE PROVIDER: Vijay Montgomery (Inactive) CHIEF COMPLAINT: Wound HISTORY OF PRESENT ILLNESS: Iveth Dill is a 49-y.o. female who presents to clinic for follow-up wound R medial upper leg. Patient reports that the dressing is being changed but no silver alginate is being applied to the wound.No new complaints. Await plastics consultation. Past Medical History: Diagnosis Date Acute coronary syndrome (HCC) Anticoagulant disorder (HCC) Anxiety Arthritis Cellulitis COPD (chronic obstructive pulmonary disease) (HCC) CVA (cerebral vascular accident) (HCC) Depression Diabetes mellitus (HCC) Heart disease Obesity Phlebitis and thrombophlebitis Stress incontinence (female) (male) Subjective visual disturbance Past Surgical History: Procedure Laterality Date BALO ANGIOP ICRA PRQ History reviewed. No pertinent family history. Social History Socioeconomic History Marital status: Single Spouse name: Not on file Number of children: Not on file Years of education: Not on file Highest education level: Not on file Occupational History Not on file Social Needs Financial resource strain: Not on file Food insecurity Worry: Not on file Inability: Not on file Transportation needs Medical: Not on file Non-medical: Not on file Tobacco Use Smoking status: Heavy Tobacco Smoker Packs/day: 0.50 Years: 40.00 Pack years: 20.00 Types: Cigarettes Start date: 10/13/1978 Smokeless tobacco: Never Used Substance and Sexual Activity Alcohol use: Not on file Drug use: Not on file Sexual activity: Not on file Lifestyle Physical activity Days per week: Not on file Minutes per session: Not on file Stress: Not on file Relationships Social connections Talks on phone: Not on file Gets together: Not on file Attends spiritism service: Not on file Active member of club or organization: Not on file Attends meetings of clubs or organizations: Not on file Relationship status: Not on file Intimate partner violence Fear of current or ex partner: Not on file Emotionally abused: Not on file Physically abused: Not on file Forced sexual activity: Not on file Other Topics Concern Not on file Social History Narrative Not on file Current Outpatient Medications Medication Sig ASPIRIN 81 PO Take by mouth. ciprofloxacin (CIPROFLOXACIN DISCHARGE) 250 MG Oral Tab Take 250 mg by mouth TWICE DAILY. duloxetine (CYMBALTA) 30 MG Oral CAPSULE ENTERIC COATED PARTICLES Take 30 mg by mouth TWICE DAILY. hydrOXYzine Pamoate 100 MG Oral Cap Take 100 mg by mouth THREE TIMES DAILY NEEDED. Oxycodone HCl 10 MG Oral Tab Take 10 mg by mouth EVERY EIGHT HOURS NEEDED (As needed for pain). Pregabalin (LYRICA) 200 MG Oral Cap Take 150 mg by mouth TWICE DAILY. Current Facility-Administered Medications Medication lidocaine (XYLOCAINE) topical solution 4 % Allergies Allergen Reactions Hydromorphone Rash Pt states breaks out and becomes itchy All history was reviewed with the patient. REVIEW OF SYSTEMS: A comprehensive review of systems was negative except for as noted in the history of present illness/subjective. PHYSICAL EXAMINATION: VITALS: BP 135/63 | Pulse 88 | Temp 98.2 F (36.8 C) (Temporal) Constitutional: In no acute distress. Cardiovascular: Sinus rhythm. Respiratory: Clear to auscultation. Extremities: Without edema BLE. Vascular: Grossly intact. Neurologic: Grossly intact. Psychiatric: Alert and oriented x 3 Skin: R medial upper leg with large defect extending through the R groin. ASSESSMENT/PLAN: ICD-9-CM ICD-10-CM 1. Wound of right leg, subsequent encounter V58.89 S81.801D 894.0 PROCEDURE: Debridement of the R medial upper leg wound to the subcutaneous tissue with muscle exposed. Continue silver alginate and recheck in 9 days. To see Plastics in 2 weeks. No orders of the defined types were placed in this encounter. FLOW SHEET: Wound Surgical Wound Right;Medial;Upper Leg #1 (Active) 09/15/19 1011 Leg Wound Type: Surgical Wound Orientation: Right;Medial;Upper Enter Description: #1 Thickness Full Thickness Without Exposed Support Structures 09/29/2019 9:45 AM Wound Severity - Pre-debridement with muscle involvement without evidence of necrosis 09/29/2019 9:45 AM Length - Pre-Debridement (cm) 17.8 cm 09/29/2019 9:45 AM Width - Pre-Debridement (cm) 8.2 cm 09/29/2019 9:45 AM Depth - Pre-Debridement (cm) 0.2 cm 09/29/2019 9:45 AM Total surface area - Pre-Debridement (sq cm) (calculated) 145.96 square cm 09/29 9:45 AM Wound Severity - Post-debridement with muscle involvement without evidence of necrosis 09/29/2019 9:45 AM Length - Post-Debridement(cm) 17.8 cm 09/29/2019 9:45 AM Width - Post-Debridement (cm) 8.2 cm 09/29/2019 9:45 AM Depth - Post-Debridement (cm) 0.2 cm 09/29/2019 9:45 AM Total surface area - Post-Debridement (sq cm) (calculated) 145.96 square cm 9:45 AM Tunneling or sinus? N 09/29/2019 9:45 AM Undermining? N 09/29/2019 9:45 AM Exudate Serous 09/29/2019 9:45 AM Exudate amount Large 09/29/2019 9:45 AM Odor None 09/29/2019 9:45 AM Granulation (%) 80 % 09/29/2019 9:45 AM Epithelial (%) 0 % 09/29/2019 9:45 AM Slough (%) 20 % 09/29/2019 9:45 AM Eschar (%) 0 % 09/29/2019 9:45 AM [place]-wound skin: Intact 09/29/2019 9:45 AM Wound edges: Viable 09/29/2019 9:45 AM Debridement? Y 09/29/2019 9:45 AM [place] time out? Y 09/29/2019 9:45 AM Anesthetic? Y 09/29/2019 9:45 AM Lidocaine 4% soak (mg) 1 mg 09/29/2019 9:45 AM Instrument Curette 09/29/2019 9:45 AM Condition Unchanged 09/29/2019 9:45 AM Tissue debrided Slough;Callous;Subcutaneous tissue 09/29/2019 9:45 AM Bleeding Min 09/29/2019 9:45 AM Bleeding controlled with Pressure 09/29/2019 9:45 AM Level of debridement Skin and subcutaneous tissue 09/29/2019 9:45 AM Tolerated procedure Patient tolerated well 09/29/2019 9:45 AM Cleansing Normal saline 09/29/2019 9:45 AM Dressing: Optilock;Silver Alginate;Other (Comment) 09/29/2019 9:45 AM Periwound Treatment Choices No Sting Barrier Film;Zinc Oxide 09/29/2019 9:45 AM Number of days: 14 FOLLOWUP: No follow-ups on file. Author: Justice Amin MD 09/29/2019 11:00 documented in this encounter Plan of Treatment Date Type Specialty Care Team Description 10/11/2019 Office Visit Wound Care/Hyperbaric Justice Amin MD [address] [place] [id number] [phone] 10/12/2019 Office Visit Plastic Surgery Miles Berkowitz MD [address] [address] Health Maintenance Due Date Last Done Comments Diabetic Eye Exam 1970 MEDICARE ANNUAL WELLNESS 1970 VISIT URINE MICROALBUMIN 1970 PNEUMOCOCCAL 0-64 YRS (1 of 1976 1 - PPSV23) DTaP/Tdap/Td Vaccines (1 - 1981 Tdap) DEPRESSION SCREENING 1982 HIV SCREENING 1985 FOOT EXAM 1988 LIPID DISORDER SCREENING 1988 MAMMOGRAM (SCREENING) 2010 PAP SMEAR 08/08/2013 08/08/2010, 01/29/2010, 07/30/2007, Additional history exists INFLUENZA VACCINE (#1) 2019 HEMOGLOBIN A1C 11/27/2019 08/27/2019 HEPATITIS A IMMUNIZATION Aged Out No longer eligible SERIES based on patient's age to complete this topic HPV IMMUNIZATION SERIES Aged Out No longer eligible based on patient's age to complete this topic MENINGOCOCCAL VACCINE IMM Aged Out No longer eligible based on patient's age to complete this topic documented as of this encounter Results Not on filedocumented in this encounter Visit Diagnoses Diagnosis Wound of right leg, subsequent encounter documented in this encounter Insurance Payer Benefit Plan / Subscriber ID Effective Dates Phone Address Type Group [facility] MEDICARE [facility] DUAL xxxxxxxxx 2019-Presen [facility] ADVANTAGE COMPLETE SNP t MEDICAID [facility] xxxxxxxx 2019-Prese Medicaid [place] MEDICAID nt Guarantor Name Account Type Relation to Date of Phone Billing Patient Address Dill,Iveth M Personal/Family [phone]) [address] [place] [id number] documented as of this encounter Advance Directives Code Status Date Activated Date Inactivated Comments Full Code 08/25/2019 11:43 PM Does the patient have decision making capacity? No Order was discussed with: Unable to determine at this time I discussed all options and patient/surrogate Full Code requested and agreed to:"
--- OUTSIDE RECORDS SUMMARY | 2019-11-26 11:56 | XMS REPORT | Summary of Care ---
:1970 Author Organization [facility] Address 1 [facility] [place] [address] Care Team Providers Name Role Phone Vijay Montgomery MD Primary Care Provider Reason for Referral Refer to Department Only (Routine) Status Reason Specialty Diagnoses / Referred By Referred To Procedures Contact Contact Pending Review ENDOCRINOLOGY / Diagnoses Type 2 diabetes mellitus with hyperglycemia, with long-term current use of insulin (HCC) Talha [place] 2 Endocrinology Manas Rodriguez MD [address] 1 [place], [place] [id number] Phone: Fax: Reason for Visit Reason Comments Pre-op Exam rt groin Encounter Details Date Type Department Care Team Description 10/22/2019 Office Visit Talha Barnes Preop examination ( Primary Dx); Medicine MD Jennifer Type 2 diabetes mellitus with hyperglycemia, with long-term current use of insulin (HCC) [address] [facility] [place] [id number] [place] [address] Allergies Active Allergy Reactions Severity Noted Date Comments Hydromorphone Rash High 08/28/2019 Pt states breaks out and becomes itchy documented as of this encounter (statuses as of 10/22/2019) Medications Medication Sig Dispensed Refills Start Date End Date Status ASPIRIN 81 PO Take by 0 Active mouth. Pregabalin (LYRICA) Take 150 mg 0 Active 200 MG Oral Cap by mouth TWICE DAILY. duloxetine Take 30 mg by 0 Active (CYMBALTA) 30 MG mouth TWICE Oral CAPSULE ENTERIC DAILY. COATED PARTICLES hydrOXYzine Pamoate Take 100 mg 0 Active 100 MG Oral Cap by mouth THREE TIMES DAILY NEEDED. Oxycodone HCl 10 MG Take 10 mg by 0 10/22/2019 Discontinued Oral Tab mouth EVERY EIGHT HOURS NEEDED (As needed for pain). ciprofloxacin Take 250 mg 0 09/21/2019 10/22/2019 Discontinued (CIPROFLOXACIN by mouth DISCHARGE) 250 MG TWICE DAILY. 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 Sepsis 08/27/2019 COPD (chronic obstructive pulmonary disease) 08/27/2019 Acute blood loss anemia 08/27/2019 Hypokalemia 08/27/2019 Hyperglycemia 08/27/2019 DM (diabetes mellitus) 08/27/2019 Overview: Non-compliant with insulin pump documented as of this encounter (statuses as of 10/22/2019) Social History Tobacco Use Types Packs/Day Years Used Date Heavy Tobacco Smoker Cigarettes 0.5 40 Started: 10/13/1978 Smokeless Tobacco: Never Used Tobacco Cessation: Ready to Quit: No Sex Assigned at Date Recorded Not on file Job Start Date Occupation Industry Not on file Not on file Not on file Travel History Travel Start Travel End No recent travel history available. documented as of this encounter Last Filed Vital Signs Vital Sign Reading Time Taken Comments Blood Pressure 138/76 10/22/2019 1:24 PM EST Pulse 80 10/22/2019 1:24 PM EST Temperature - - Respiratory Rate - - Oxygen Saturation - - Inhaled Oxygen Concentration - - Weight 73.4 kg (161 lb 14.4 oz) 10/22/2019 1:24 PM EST Height 147.3 cm (4' 10") 10/22/2019 1:24 PM EST Body Mass Index 33.84 10/22/2019 1:24 PM EST documented in this encounter Patient Instructions Patient Talha Raya MD - 10/22/2019 1:00 PM EST1.Get the blood work for CBC and BMP 2.Get the Urinalysis and EKG 3.Referral to [facility] for Diabetes Management documented in this encounter Plan of Treatment Date Type Specialty Care Team Description 10/25/2019 Office Visit Wound Justice Amin Care/Hyperbaric MD [address] [place] [address] [phone] 10/29/2019 Hospital Encounter [facility] Miles Berkowitz MD Short Procedure [address] [place] [address] 10/29/2019 Surgery [facility] Miles Berkowitz MD SPLIT THICKNESS SKIN [address] GRAFT TO PERINEUM [place] [address] 11/04/2019 Plastic Surg Plastic Surgery Nurse/clinical support Name Type Priority Associated Diagnoses Order Schedule INPT/ED 12 LEAD EKG EKG Routine Preop examination Expected: 10/22/2019, Expires: 11/25/2020 CBC WITH DIFFERENTIAL Lab Routine Preop examination Expected: 10/22/2019 (Approximate), Expires: 10/22/2020 BASIC METABOLIC PANEL Lab Routine Preop examination Expected: 10/22/2019 (Approximate), Expires: 10/22/2020 URINALYSIS (LAB) WITH Lab Routine Preop examination Expected: 10/22/2019 REFLEX CULTURE (Approximate), Expires: 04/19/2020 Name Type Priority Associated Diagnoses Order Schedule REFER TO ENDOCRINOLOGY Referral Routine Type 2 diabetes Expected: 2019, mellitus with Expires: 10/22/2020 hyperglycemia, with long-term current use of insulin (HCC) Health Maintenance Due Date Last Done Comments Diabetic Eye Exam 1970 URINE MICROALBUMIN 1970 PNEUMOCOCCAL 0-64 YRS (1 of 1976 1 - PPSV23) DTaP/Tdap/Td Vaccines (1 - 1981 Tdap) HIV SCREENING 1985 FOOT EXAM 1988 LIPID DISORDER SCREENING 1988 MAMMOGRAM (SCREENING) 2010 PAP SMEAR 08/08/2013 08/08/2010, 01/29/2010, 07/30/2007, Additional history exists INFLUENZA VACCINE (#1) 2019 HEMOGLOBIN A1C 11/27/2019 08/27/2019 DEPRESSION SCREENING 10/22/2020 10/22/2019 HEPATITIS A IMMUNIZATION Aged Out No longer [...] encounter Visit Diagnoses Diagnosis Wound of right groin, initial encounter Diagnosis Preop examination Preoperative examination, unspecified Type 2 diabetes mellitus with hyperglycemia, with long-term current use of insulin (HCC) Diagnosis Right groin wound Open wound of abdominal wall, lateral, without mention of complication documented in this encounter Insurance Payer Benefit Plan / Subscriber ID Effective Dates Phone Address Type Group [place] xxxxxxxx 2019-Present Medicaid [place] Guarantor Name Account Type Relation to Date of Phone Billing Patient Address Iveth Dill Personal/Family 1970 [id number] [facility] (Home) [address] [place], [place] (Work) [id number] documented as of this encounter Advance Directives Code Status Date Activated Date Inactivated Comments Full Code 08/25/2019 11:43 PM Does the patient have decision making capacity? No Order was discussed with: Unable to determine at this time I discussed all options and patient/surrogate Full Code requested and agreed to:
--- OUTSIDE RECORDS SUMMARY | 2019-11-26 11:56 | XMS REPORT | Summary of Care ---
:1970 Author Organization [facility] Address [address] [place] [address] Care Team Providers Name Role Phone Lee Hui DO Primary Care Provider Reason for Visit Auth/Cert Status Reason Specialty Diagnoses / Procedures Referred By Contact Referred To Contact Diagnoses Wound of right groin, initial encounter Procedures SPLIT THICKNESS SKIN GRAFT TO PERINEUM Encounter Details Date Type Department Care Team Description 10/29/2019 Hospital Encounter [facility] Preprocedure Miles Berkowitz MD Short Procedure [address] [place] [address] [place] [address] [phone] Allergies Active Allergy Reactions Severity Noted Date Comments Hydromorphone Rash High 08/28/2019 Pt states breaks out and becomes itchy documented as of this encounter (statuses as of 10/30/2019) Medications Medication Sig Dispensed Refills Start Date End Date Status ASPIRIN 81 PO Take by mouth. 0 Active Pregabalin (LYRICA) 200 Take 150 mg by 0 Active MG Oral Cap mouth TWICE DAILY. duloxetine (CYMBALTA) Take 30 mg by 0 Active 30 MG Oral CAPSULE mouth TWICE ENTERIC COATED DAILY. PARTICLES hydrOXYzine Pamoate 100 Take 100 mg by 0 Active MG Oral Cap mouth THREE TIMES DAILY NEEDED. 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 Sepsis 08/27/2019 COPD (chronic obstructive pulmonary disease) 08/27/2019 Acute blood loss anemia 08/27/2019 Hypokalemia 08/27/2019 Hyperglycemia 08/27/2019 DM (diabetes mellitus) 08/27/2019 Overview: Non-compliant with insulin pump documented as of this encounter (statuses as of 10/30/2019) Social History Tobacco Use Types Packs/Day Years Used Date Heavy Tobacco Smoker Cigarettes 0.5 40 Started: 10/13/1978 Smokeless Tobacco: Never Used Alcohol Use Drinks/Week oz/Week Comments Not Currently Sex Assigned at Date Recorded Not on file Job Start Date Occupation Industry Not on file Not on file Not on file Travel History Travel Start Travel End No recent travel history available. documented as of this encounter Last Filed Vital Signs Vital Sign Reading Time Taken Comments Blood Pressure 115/60 10/29/2019 11:32 AM EST Pulse 102 10/29/2019 11:32 AM EST Temperature 36.7 10/29/2019 11:32 AM C (98.1 EST F) Respiratory Rate 18 10/29/2019 11:32 AM EST Oxygen Saturation 96% 10/29/2019 11:32 AM EST Inhaled Oxygen Concentration - - Weight 71.6 kg (157 lb 12.8 oz) 10/29/2019 11:32 AM EST Height 147.3 cm (4' 10") 10/29/2019 11:32 AM EST Body Mass Index 32.98 10/29/2019 11:32 AM EST documented in this encounter Discharge Summaries Miles Berkowitz MD - 10/29/2019 11:50 AM ESTGUTHRIE SP/OP DISCHARGE NOTE [address] [address] PATIENT: Iveth Dill SURGEON: Primary: Miles Berkowitz MD ASSISTING: alis : 1970 DATE OF SURGERY: 10/29/2019 Procedure: cancelled - high sugars 350+ Principle Diagnosis: right groin wound Associated Condition(s): Same as pre-op, unless otherwise indicated Mental Status: Same as pre-op, unless otherwise indicated. Condition: Stable, unless otherwise indicated Disposition of Care: Discharge to home. Appointment with/ or Follow-up with 2 weeks plastics clinic to recheck sugars - she was being managed by our anesthesia colleagues today and we asked her to followup closely with her PCP who is her skilled helper to better optimize sugar control. No orders of the defined types were placed in this encounter. Other Comments:alis Author: Miles Berkowitz MD 10/29/2019 documented in this encounter Plan of Treatment Date Type Specialty Care Team Description 11/04/2019 Plastic Surg Plastic Surgery Nurse/clinical support 07/24/2020 Office Visit Endocrinology Jerri Almaguer MD [address] [facility] [place] [address] Health Maintenance Due Date Last Done [...] this topic documented as of this encounter Procedures Procedure Name Priority Date/Time Associated Diagnosis Comments HC GLUCOSE, BY Routine 10/29/2019 11:26 AM Results for this MONITOR EST procedure are in the results section. documented in this encounter Results GLUCOSE (POCT) (10/29/2019 11:26 AM EST) Glucose POCT 320 (H) 70 - 99 mg/dl POINT OF CARE Result Comment: TESTING Performed at: [facility] POCT Franki Simspon MD, Laboratory Program Strategist [address] [address] Specimen Performing Organization Address City/State/Zipcode Phone Number POINT OF CARE TESTING documented in this encounter Visit Diagnoses Diagnosis Right groin wound Open wound of abdominal wall, lateral, without mention of complication documented in this encounter Administered Medications Medication Order MAR Action Action Date Dose Rate Site lactated ringers IV Intravenous, at 15 mL/hr, CONTINUOUS, Starting Fri10/29/19 at 1110, Until Fri10/29/19 at 1354, 2 Day of Surgery Pre Procedure lidocaine (XYLOCAINE) injection 1 % 1 mL, Subcutaneous, PRU X1 PRN, 1 dose, Starting Fri10/29/19 at 1100, Until Fri10/29/19 at 1354, premedication for __, prior to IV insertion for patient comfort as needed, 2 Day of Surgery Pre Procedure, prior to IV insertion for patient comfort as needed, REGULAR insulin (SHORT-Acting) injection 8 Units 8 Units, Subcutaneous, X1, 1 dose, First dose on Fri10/29/19 at 1240 documented in this encounter Insurance Payer Benefit Plan / Subscriber ID Effective Dates Phone Address Type Group [place] xxxxxxxx 2019-Present Medicaid [place] Guarantor Name Account Type Relation to Date of Phone Billing Patient Address FuentesIveth Ca Personal/Family [phone] [place], [place] (Work) [id number] documented as of this encounter Advance Directives Code Status Date Activated Date Inactivated Comments Full Code 08/25/2019 11:43 PM 10/29/2019 10:03 AM Does the patient have decision making capacity? No Order was discussed with: Unable to determine at this time I discussed all options and patient/surrogate Full Code requested and agreed to:
--- OUTSIDE RECORDS SUMMARY | 2019-11-26 11:56 | XMS REPORT | Summary of Care ---
:1970 Author Organization [facility] Address 1 [place] [address] Care Team Providers Name Role Phone Vijay Montgomery MD Primary Care Provider Reason for Visit Reason Comments Wound Encounter Details Date Type Department Care Team Description 10/11/2019 Office Visit [facility] Brennan Justice, Wound of right leg, Wound Care & MD subsequent encounter Hyperbaric Medicine [address] (Primary Dx) [address] [place] [address] [place] [address] [phone] Allergies Active Allergy Reactions Severity Noted Date Comments Hydromorphone Rash High 08/28/2019 Pt states breaks out and becomes itchy documented as of this encounter (statuses as of 10/11/2019) Medications Medication Sig Dispensed Refills Start Date [...] Medication lidocaine (XYLOCAINE) 1 Appl TOP X1 10/11/2019 10/18/2019 Active topical solution 4 % documented as of this encounter (statuses as of 10/11/2019) Active Problems Problem Noted Date 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 Sepsis 08/27/2019 COPD (chronic obstructive pulmonary disease) 08/27/2019 Acute blood loss anemia 08/27/2019 Hypokalemia 08/27/2019 Hyperglycemia 08/27/2019 DM (diabetes mellitus) 08/27/2019 Overview: Non-compliant with insulin pump documented as of this encounter (statuses as of 10/11/2019) Social History Tobacco Use Types Packs/Day Years [...] Sign Reading Time Taken Comments Blood Pressure 141/65 10/11/2019 1:30 PM EST Pulse 111 10/11/2019 1:30 PM EST Temperature 36.9 10/11/2019 1:30 PM EST C (98.4 F) Respiratory Rate - - Oxygen Saturation - - Inhaled Oxygen Concentration - - Weight - - Height - - Body Mass Index - - documented in this encounter Patient Instructions Patient InstructionsEmma Hernández RN - 10/11/2019 1:45 PM ESTWound Care Orders Please follow these instructions for wound care until your next scheduled visit. For questions, contact the Wound Care Center at the [facility] at [phone], Friday - Friday, 7:30 AM - 4:30 [...] dressing. Keep dressing clean, dry and intact. Change dressing daily. We will see you for your follow-up visit at the [facility] Care Center. It was a pleasure being your nurse today! Your Boat Loader Helper, Emma Hernández RN documented in this encounter Progress Notes Justice Amin MD - 10/11/2019 1:45 PM EST PATIENT: Iveth Dill : 1970 DATE OF SERVICE: 10/11/2019 REFERRING PRACTITIONER: Justice Amin PRIMARY CARE PROVIDER: Vijay Montgomery (Inactive) CHIEF COMPLAINT: Wound HISTORY OF PRESENT ILLNESS: Iveth Dill is a 49-y.o. female who presents to clinic for follow-up wound R medial upper leg. Patient reports no change. Patient is to see plastics tomorrow. No new complaints. Past Medical History: Diagnosis Date Acute coronary [...] file Gets together: Not on file Attends restorationist service: Not on file Active member of [...] of present illness/subjective. PHYSICAL EXAMINATION: VITALS: BP (!) 141/65 | Pulse (!) 111 | Temp 98.4 F (36.9 C) ( Temporal) Constitutional: In no acute distress. Cardiovascular: Sinus rhythm. Respiratory: Clear to auscultation. Extremities: Without edema BLE. Vascular: Grossly intact. Neurologic: Grossly intact. Psychiatric: Alert and oriented x 3 Skin: Wound on R medial upper leg appears unchanged. ASSESSMENT/PLAN: ICD-9-CM ICD-10-CM 1. Wound of right leg, subsequent encounter V58.89 S81.801D 894.0 PROCEDURE: Did not debride today as patient is to see plastics tomorrow. Continue silver alginate. Recheck in 7 days. No orders of the defined types were placed in this encounter. FLOW SHEET: Wound Surgical Wound Right;Medial;Upper Leg #1 (Active) 09/15/19 1011 Leg Wound Type: Surgical Wound Orientation: Right;Medial;Upper Enter Description: #1 Thickness Full Thickness Without Exposed Support Structures 10/11/2019 1:45 PM Wound Severity - Pre-debridement with muscle involvement without evidence of necrosis 10/11/2019 1:45 PM Length - Pre-Debridement (cm) 16.6 cm 10/11/2019 1:45 PM Width - Pre-Debridement (cm) 8 cm 10/11/2019 1:45 PM Depth - Pre-Debridement (cm) 0.2 cm 10/11/2019 1:45 PM Total surface area - Pre-Debridement (sq cm) (calculated) 132.8 square cm 2018 1:45 PM Wound Severity - Post-debridement with muscle involvement without evidence of necrosis 10/11/2019 1:45 PM Length - Post-Debridement(cm) 17.8 cm 09/29/2019 9:45 AM Width - Post-Debridement (cm) 8.2 cm 09/29/2019 9:45 AM Depth - Post-Debridement (cm) 0.2 cm 09/29/2019 9:45 AM Total surface area - Post-Debridement (sq cm) (calculated) 145.96 square cm 9:45 AM Tunneling or sinus? N 10/11/2019 1:45 PM Undermining? N 10/11/2019 1:45 PM Exudate Serous 10/11/2019 1:45 PM Exudate amount Large 10/11/2019 1:45 PM Odor None 10/11/2019 1:45 PM Granulation (%) 90 % 10/11/2019 1:45 PM Epithelial (%) 0 % 10/11/2019 1:45 PM Slough (%) 10 % 10/11/2019 1:45 PM Eschar (%) 0 % 10/11/2019 1:45 PM [place]-wound skin: Intact 10/11/2019 1:45 PM Wound edges: Viable 10/11/2019 1:45 PM Debridement? N 10/11/2019 1:45 PM [place] time out? Y 09/29/2019 9:45 AM Anesthetic? Y 10/11/2019 1:45 PM Lidocaine 4% soak (mg) 1 mg 10/11/2019 1:45 PM Instrument Curette 09/29/2019 9:45 AM Condition Unchanged 10/11/2019 1:45 PM Tissue debrided Slough;Callous;Subcutaneous tissue 09/29/2019 9:45 AM Bleeding Min 09/29/2019 9:45 AM Bleeding controlled with Pressure 09/29/2019 9:45 AM Level of debridement Skin and subcutaneous tissue 09/29/2019 9:45 AM Tolerated procedure Patient tolerated well 09/29/2019 9:45 AM Cleansing Normal saline 10/11/2019 1:45 PM Dressing: DSD/gauze;Optilock;Silver Alginate 10/11/2019 1:45 PM Periwound Treatment Choices Zinc Oxide 10/11/2019 1:45 PM Number of days: 26 FOLLOWUP: No follow-ups on file. Author: Justice Amin MD 10/11/2019 15:44 documented in this encounter Plan of Treatment Date Type Specialty Care Team Description 10/12/2019 Office Visit Plastic Surgery Miles Berkowitz MD [address] [place] [address] [phone] Health Maintenance Due Date Last Done Comments [...] ID Effective Dates Phone Address Type Group [facility] MEDICARE [facility] DUAL xxxxxxxxx 2019-Presen [facility] ADVANTAGE COMPLETE SNP t MEDICAID [facility] xxxxxxxx 2019-Prese Medicaid [place] MEDICAID nt Guarantor Name Account Type Relation to Date of Phone Billing Patient Address Dill,Iveth Ca Personal/Family [phone] [phone] [place], [place] (Work) [phone] documented as of this encounter Advance Directives Code Status Date Activated Date Inactivated Comments Full Code 08/25/2019 11:43 PM Does the patient have decision making capacity? No Order was discussed with: Unable to determine at this time I discussed all options and patient/surrogate Full Code requested and agreed to:"
--- OUTSIDE RECORDS SUMMARY | 2019-11-26 11:56 | XMS REPORT | Summary of Care ---
:1970 Author Organization [facility] Address [address] [place] [address] Care Team Providers Name Role Phone Lee Hui DO Primary Care Provider Reason for Visit Reason Comments Surgical Followup Encounter Details Date Type Department Care Team Description 10/25/2019 Office Visit Miles Spivey MD Surgical followup Surgery [address] (Primary Dx) [address] [place] [address] [place] [phone] Allergies Active Allergy Reactions Severity Noted Date Comments Hydromorphone Rash High 08/28/2019 Pt states breaks out and becomes itchy documented as of this encounter (statuses as of 10/25/2019) Medications Medication Sig Dispensed Refills Start Date [...] as of this encounter (statuses as of 10/25/2019) Active Problems Problem Noted Date Right groin wound 10/12/2019 Overview: Added automatically from request for surgery [id number] 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 Sepsis 08/27/2019 COPD (chronic obstructive pulmonary disease) 08/27/2019 Acute blood loss anemia 08/27/2019 Hypokalemia 08/27/2019 Hyperglycemia 08/27/2019 DM (diabetes mellitus) 08/27/2019 Overview: Non-compliant with insulin pump documented as of this encounter (statuses as of 10/25/2019) Social History Tobacco Use Types Packs/Day Years Used Date Heavy Tobacco Smoker Cigarettes 0.5 40 Started: 10/13/1978 Smokeless Tobacco: Never Used Sex Assigned at Date Recorded Not on file Job Start Date Occupation Industry Not on file Not on file Not on file Travel History Travel Start Travel End No recent travel history available. documented as of this encounter Last Filed Vital Signs Not on filedocumented in this encounter Progress Notes Miles Berkowitz MD - 10/25/2019 1:00 PM ESTPATIENT: Iveth Dill : 1970 DATE OF SERVICE: 10/25/2019 'wound opening up' Wound looks same as previous Good granulation tissue Wet to dry dressing [facility] this Friday Consent redone Author: Miles Berkowitz MD 10/25/2019 14:43 documented in this encounter Plan of Treatment Date Type Specialty Care Team Description 10/29/2019 Hospital Encounter [facility] Miles Berkowitz MD Short Procedure [address] [place] [address] 10/29/2019 Surgery [facility] Miles Berkowitz MD SPLIT THICKNESS SKIN [address] GRAFT TO PERINEUM [place] [address] 11/04/2019 Plastic Surg Plastic Surgery Nurse/clinical support 07/24/2020 Office [place] [address] [place] [address] [place] [address] Health Maintenance Due Date [...] Wound of right groin, initial encounter Diagnosis Surgical followup Follow-up examination, following unspecified surgery Diagnosis Right groin wound Open wound of abdominal wall, lateral, without mention of complication documented in this encounter Insurance Payer Benefit Plan / Subscriber ID Effective Dates Phone Address Type Group [place] xxxxxxxx 2019-Present Medicaid [place] Guarantor Name Account Type Relation to Date of Phone Billing Patient Address Iveth Dill Personal/Family [phone] [facility] ([address]) [address] [place], [place] (Work) [address] documented as of this encounter Advance Directives Code Status Date Activated Date Inactivated Comments Full Code 08/25/2019 11:43 PM Does the patient have decision making capacity? No Order was discussed with: Unable to determine at this time I discussed all options and patient/surrogate Full Code requested and agreed to:
--- OUTSIDE RECORDS SUMMARY | 2019-11-26 11:56 | XMS REPORT | Summary of Care ---
:1970 Author Organization [facility] Address [address] [place] [address] Care Team Providers Name Role Phone Lee Hui DO Primary Care Provider Reason for Visit Reason Comments Surgical Followup Encounter Details Date Type Department Care Team Description 11/11/2019 Office Visit Miles Spivey MD Surgical followup Surgery [address] (Primary Dx) [address] [place] [address] [place] [id number] Allergies Active Allergy Reactions Severity Noted Date Comments Hydromorphone Rash High 08/28/2019 Pt states breaks out and becomes itchy documented as of this encounter (statuses as of 11/11/2019) Medications Medication Sig Dispensed Refills Start Date [...] as of this encounter (statuses as of 11/11/2019) Active Problems Problem Noted Date Right groin wound 10/12/2019 Overview: Added automatically from request for surgery [id number] 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 Sepsis 08/27/2019 COPD (chronic obstructive pulmonary disease) 08/27/2019 Acute blood loss anemia 08/27/2019 Hypokalemia 08/27/2019 Hyperglycemia 08/27/2019 DM (diabetes mellitus) 08/27/2019 Overview: Non-compliant with insulin pump documented as of this encounter (statuses as of 11/11/2019) Social History Tobacco Use Types Packs/Day Years [...] encounter Progress Notes Miles Berkowitz MD - 11/11/2019 11:00 AM ESTPATIENT: Iveth Dill : 1970 DATE OF SERVICE: 11/11/2019 Sugars improving with tighter control Right groin wound remains clean Continue care RTC in 2weeks If HbA1c is improved will proceed with booking surgery Author: Miles Berkowitz MD 11/11/2019 13:06 documented in this encounter Plan of Treatment Date Type Specialty Care Team Description 11/24/2019 Plastic Surg Plastic Surgery Nurse/clinical support 07/24/2020 Office Visit Endocrinology Jerri Almaguer MD [address] [place] [address] Health Maintenance Due Date Last Done Comments Diabetic Eye Exam 1970 URINE MICROALBUMIN 1970 PNEUMOCOCCAL 0-64 YRS (1 of 1976 1 - PPSV23) DTaP/Tdap/Td Vaccines ( - 1981 Tdap) HIV SCREENING 1985 FOOT [...] filedocumented in this encounter Visit Diagnoses Diagnosis Surgical followup Follow-up examination, following unspecified surgery documented in this encounter Insurance Payer Benefit Plan / Subscriber ID Effective Dates Phone Address Type Group [place] xxxxxxxx 2019-Present Medicaid [place] Guarantor Name Account Type Relation to Date of Phone Billing Patient Address [place] Personal/Family [phone] [facility] (Home) [address] [place], [place] (Work) [phone] documented as of this encounter Advance Directives Code Status Date Activated Date Inactivated Comments Full Code 08/25/2019 11:43 PM 10/29/2019 10:03 AM Does the patient have decision making capacity? No Order was discussed with: Unable to determine at this time I discussed all options and patient/surrogate Full Code requested and agreed to:
--- OUTSIDE RECORDS SUMMARY | 2019-11-26 11:56 | XMS REPORT | Summary of Care ---
:1970 Author Organization [facility] Address [address] [address] Care Team Providers Name Role Phone Vijay Montgomery MD Primary Care Provider Reason for Visit Reason Comments Wound Encounter Details Date Type Department Care Team Description 10/18/2019 Office Visit [facility] Brennan Justice, Wound of right leg, Wound Care & MD subsequent encounter Hyperbaric Medicine [address] (Primary Dx) [address] [place] [address] [place] [address] [phone] Allergies Active Allergy Reactions Severity Noted Date Comments Hydromorphone Rash High 08/28/2019 Pt states breaks out and becomes itchy documented as of this encounter (statuses as of 10/18/2019) Medications Medication Sig Dispensed Refills Start Date [...] 10/11/2019 10/18/2019 Active topical solution 4 % lidocaine (XYLOCAINE) 1 Appl TOP X1 10/18/2019 10/25/2019 Active topical solution 4 % documented as of this encounter (statuses as of 10/18/2019) Active Problems Problem Noted Date Right groin wound 10/12/2019 Overview: Added automatically from request for surgery [id number] 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 Sepsis 08/27/2019 COPD (chronic obstructive pulmonary disease) 08/27/2019 Acute blood loss anemia 08/27/2019 Hypokalemia 08/27/2019 Hyperglycemia 08/27/2019 DM (diabetes mellitus) 08/27/2019 Overview: Non-compliant with insulin pump documented as of this encounter (statuses as of 10/18/2019) Social History Tobacco Use Types Packs/Day Years [...] Sign Reading Time Taken Comments Blood Pressure 146/70 10/18/2019 9:45 AM EST Pulse 102 10/18/2019 9:45 AM EST Temperature 36.6 10/18/2019 9:45 AM EST C (97.9 F) Respiratory Rate - - Oxygen Saturation - - Inhaled Oxygen Concentration - - Weight - - Height - - Body Mass Index - - documented in this encounter Patient Instructions Patient InstructionsEmma Hernández RN - 10/18/2019 10:15 AM ESTWound Care Orders Please follow these instructions for wound care until your next scheduled visit. For questions, contact the Wound Care Center at the [facility] at [phone], Friday - Friday, 7:30 AM - 4:30 [...] a pleasure being your nurse today! Your Pedodontist, Emma Hernández RN documented in this encounter Progress Notes Justice Amin MD - 10/18/2019 10:15 AM EST PATIENT: Iveth Dill : 1970 DATE OF SERVICE: 10/18/2019 REFERRING PRACTITIONER: Justice Amin PRIMARY CARE PROVIDER: Vijay Montgomery (Inactive) CHIEF COMPLAINT: Wound HISTORY OF PRESENT ILLNESS: Iveth Dill is a 49-y.o. female who presents to clinic for follow-up wound R medial upper leg. Patient reports that the drainage persists. Patient is scheduled for surgery for surgical flap in 11 days. Patient is also concerned about scabies with exposure. Reports no rash. Past Medical History: Diagnosis Date Acute coronary [...] file Gets together: Not on file Attends amish service: Not on file Active member of [...] Medication lidocaine (XYLOCAINE) topical solution 4 % lidocaine (XYLOCAINE) topical solution 4 % Allergies Allergen Reactions Hydromorphone Rash Pt states breaks out and becomes itchy All history was reviewed with the patient. REVIEW OF SYSTEMS: A comprehensive review of systems was negative except for as noted in the history of present illness/subjective. PHYSICAL EXAMINATION: VITALS: BP (!) 146/70 | Pulse 102 | Temp 97.9 F (36.6 C) (Temporal) Constitutional: In no acute distress. Cardiovascular: Sinus rhythm. Respiratory: Clear to auscultation. Extremities: Without edema bilat. Vascular: Grossly intact bilat. Neurologic: Grossly intact. Psychiatric: Alert and oriented x 3 Skin: Wound appears unchanged. ASSESSMENT/PLAN: ICD-9-CM ICD-10-CM 1. Wound of right leg, subsequent encounter V58.89 S81.801D 894.0 PROCEDURE: Debridement to the subcutaneous tissue of the R upper leg wound. Continue silver alginate and recommend OTC Permethrin to apply to the skin. For surgery in 11 days. Recheck in 7 days. No orders of the defined types were placed in this encounter. FLOW SHEET: Wound Surgical Wound Right;Medial;Upper Leg #1 (Active) 09/15/19 1011 Leg Wound Type: Surgical Wound Orientation: Right;Medial;Upper Enter Description: #1 Thickness Full Thickness Without Exposed Support Structures 10/18/2019 10:00 AM Wound Severity - Pre-debridement with muscle involvement without evidence of necrosis 10/18/2019 10:00AM Length - Pre-Debridement (cm) 15.8 cm 10/18/2019 10:00 AM Width - Pre-Debridement (cm) 7.9 cm 10/18/2019 10:00 AM Depth - Pre-Debridement (cm) 0.2 cm 10/18/2019 10:00 AM Total surface area - Pre-Debridement (sq cm) (calculated) 124.82 square cm 2019 10:00 AM Wound Severity - Post-debridement with muscle involvement without evidence of necrosis 10/18/2019 10:00 AM Length - Post-Debridement(cm) 15.8 cm 10/18/2019 10:00 AM Width - Post-Debridement (cm) 7.9 cm 10/18/2019 10:00 AM Depth - Post-Debridement (cm) 0.2 cm 10/18/2019 10:00 AM Total surface area - Post-Debridement (sq cm) (calculated) 124.82 square cm 2019 10:00 AM Tunneling or sinus? N 10/18/2019 10:00 AM Undermining? N 10/18/2019 10:00 AM Exudate Serous 10/18/2019 10:00 AM Exudate amount Large 10/18/2019 10:00 AM Odor None 10/18/2019 10:00 AM Granulation (%) 90 % 10/18/2019 10:00 AM Epithelial (%) 0 % 10/18/2019 10:00 AM Slough (%) 10 % 10/18/2019 10:00 AM Eschar (%) 0 % 10/18/2019 10:00 AM [place]-wound skin: Intact 10/18/2019 10:00 AM Wound edges: Viable 10/18/2019 10:00 AM Debridement? Y 10/18/2019 10:00 AM [place]win time out? Y 10/18/2019 10:00 AM Anesthetic? Y 10/18/2019 10:00 AM Lidocaine 4% soak (mg) 1 mg 10/18/2019 10:00 AM Instrument Curette 10/18/2019 10:00 AM Condition Improved 10/18/2019 10:00 AM Tissue debrided Biofilm;Slough;Subcutaneous tissue 10/18/2019 10:00 AM Bleeding Min 10/18/2019 10:00 AM Bleeding controlled with Pressure 10/18/2019 10:00 AM Level of debridement Skin and subcutaneous tissue 10/18/2019 10:00 AM Tolerated procedure Patient tolerated well 10/18/2019 10:00 AM Cleansing Normal saline 10/18/2019 10:00 AM Dressing: DSD/gauze;Optilock;Silver Alginate 10/18/2019 10:00 AM Periwound Treatment Choices Zinc Oxide 10/18/2019 10:00 AM Number of days: 33 FOLLOWUP: No follow-ups on file. Author: Justice Amin MD 10/18/2019 11:16 documented in this encounter Plan of Treatment Date Type Specialty Care Team Description 10/22/2019 Office Visit Internal Medicine Talha Palomino MD [address] [place] [address] 10/25/2019 Office Visit Wound Justice Amin Care/Hyperbaric [address] [place] [address] [phone] 10/29/2019 Hospital Encounter [facility] Miles Berkowitz MD Short Procedure [address] [address] 10/29/2019 Surgery [facility] Miles Berkowitz MD SPLIT THICKNESS SKIN [address] GRAFT TO PERINEUM [place] [address] 11/04/2019 Plastic Surg Plastic Surgery Nurse/clinical support Health Maintenance Due Date Last Done Comments Diabetic Eye Exam 1970 URINE MICROALBUMIN 1970 PNEUMOCOCCAL 0-64 YRS (1 of 1976 1 - PPSV23) DTaP/Tdap/Td Vaccines ( - 1981 Tdap) DEPRESSION SCREENING 1982 HIV [...] Wound of right groin, initial encounter Diagnosis Wound of right leg, subsequent encounter Diagnosis Right groin wound Open wound of abdominal wall, lateral, without mention of complication documented in this encounter Insurance Payer Benefit Plan / Subscriber ID Effective Dates Phone Address Type Group [place] xxxxxxxx 2019-Present Medicaid [place] Guarantor Name Account Type Relation to Date of Phone Billing Patient Address Iveth Dill Personal/Family [phone] [facility] (Home) [address] [place], [place] (Work) [address] documented as of this encounter Advance Directives Code Status Date Activated Date Inactivated Comments Full Code 08/25/2019 11:43 PM Does the patient have decision making capacity? No Order was discussed with: Unable to determine at this time I discussed all options and patient/surrogate Full Code requested and agreed to:"
--- OUTSIDE RECORDS SUMMARY | 2019-11-26 11:56 | XMS REPORT | Summary of Care ---
:1970 Author Organization [facility] Address [address] [place] [address] Care Team Providers Name Role Phone Vijay Montgomery MD Primary Care Provider Reason for Visit Reason Comments Wound Refer to Department Only (Routine) Status Reason Specialty Diagnoses / Referred By Referred To Procedures Contact Contact Pending Review PLASTIC SURGERY Diagnoses Wound of right groin, initial encounter Brennan / Plastic MD Justice Surgery [address] [place] [address] Encounter Details Date Type Department Care Team Description 10/12/2019 Office Visit [facility] Miles Berkowitz MD Wound of right groin, Surgery [address] initial encounter [address] [place] [address] (Primary Dx) [place] [phone] Allergies Active Allergy Reactions Severity Noted Date Comments Hydromorphone Rash High 08/28/2019 Pt states breaks out and becomes itchy documented as of this encounter (statuses as of 10/12/2019) Medications Medication Sig Dispensed Refills Start Date [...] as of this encounter (statuses as of 10/12/2019) Active Problems Problem Noted Date Right groin wound 10/12/2019 Overview: Added automatically from request for surgery [id number] 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 HISTORY OF PRESENT ILLNESS: Ms Dill presents with a right groin wound that is granulating in s/p right groin debridement for necrotizing fasciitis and wound vac placement. This has been present for 6 weeks. The patient indicates that this occasionally causes pain. She has no symptoms nor signs of infection. She is seeking final reconstruction of the area. Past Medical History: Diagnosis Date Acute coronary syndrome (HCC) Anticoagulant disorder (HCC) Anxiety Arthritis Cellulitis COPD (chronic obstructive pulmonary disease) (HCC) CVA (cerebral vascular accident) (HCC) Depression Diabetes mellitus (HCC) Heart disease Obesity Phlebitis and thrombophlebitis Stress incontinence (female) (male) Subjective visual disturbance Past Surgical History: Procedure Laterality Date BALO ANGIOP ICRA PRQ No family history on file. Current Outpatient Medications Medication Sig ASPIRIN 81 [...] Pt states breaks out and becomes itchy Social History Occupational History Not on file Tobacco Use Smoking status: Heavy Tobacco Smoker Packs/day: 0.50 Years: 40.00 Pack years: 20.00 Types: Cigarettes Start date: 10/13/1978 Smokeless tobacco: Never Used Substance and Sexual Activity Alcohol use: Not on file Drug use: Not on file Sexual activity: Not on file REVIEW OF SYSTEMS: CONSTITUTIONAL: negative. EYES: negative. EARS, NOSE, MOUTH, THROAT and FACE: negative. RESPIRATORY: COPD, Heavy smoker CARDIOVASCULAR: CAD GASTROINTESTINAL: negative. GENITOURINARY: Right groin wound s/p fourniere's INTEGUMENT/BREAST: negative. HEMATOLOGIC/LYMPHATIC: negative. MUSCULOSKELETAL: negative. NEUROLOGICAL: negative. BEHAVIORAL/PSYCH: negative. ENDOCRINE: DM ALLERGIC/IMMUNOLOGIC: negative. PHYSICAL EXAMINATION: GENERAL: Alert, cooperative, no distress, appears stated age. HEAD: Normocephalic, without obvious abnormality, atraumatic. EYES: Conjunctivae/corneas clear. Pupils equal, round, reactive to light, extra ocular muscles intact. Fundi benign. EARS: Normal tympanic membranes and external ear canals both ears. NOSE: Nares normal. Septum midline. Mucosa normal. No drainage. THROAT: Lips, mucosa, and tongue normal. Teeth and gums normal. NECK: Supple, symmetrical, trachea midline, no adenopathy, thyroid: no enlargment/tenderness/nodules. BACK: Symmetric, no curvature. Range of motion normal. No flank tenderness. LUNGS: Clear to auscultation bilaterally. CHEST WALL: No tenderness or deformity. HEART: Regular rate and rhythm. ABDOMEN: Soft, non-tender. Bowel sounds normal. No masses, No organomegaly. EXTREMITIES: Obvious groin wound as mentioned above PULSES: 2+ and symmetric all extremities. SKIN: Skin color, texture, turgor normal. No rashes or lesions. LYMPH NODES: Cervical, supraclavicular, parotid and axillary nodes normal. COMORBITIES: The following comorbidities make this patient a high risk for surgical intervention: HTN, DM, CAD, COPD, Phlebitis, heavy smoker all of which put the patient at a considerable increased risk of wound infections, delayed wound healing, wound dehiscence, hematoma, cellulitis and other srinivasa-procedure complications which may result in further ER presentations or admission to the hospital. COUNSELLING: A total time of 30 minutes was spent with the patient over half of which was spent counselling the patient on the need for stsg. The location of harvest, the placement and dressings, the risks of surgery including bleeding, infection , skin graft failure and the need for further surgery. SMOKING CESSATION: 3 minutes was spent counseling this patient on smoking cessation, support tools at his/her disposal,prescriptions and potential outcomes. This patient was agreeable to Smoking Cessation and was competent and alert at the time of counseling. ASSESSMENT: ICD-9-CM ICD-10-CM 1. Wound of right groin, initial encounter 879.4 S31.109A REFER TO PLASTIC SURGERY CASE REQUEST OPERATING ROOM I explained to Iveth Dill that I did have concerns about the lesion on her right groin. I did recommend that we proceed with STSG reconstruction, and therefore did explain the procedure to the patient and discuss the risks of bleeding, infection, scarring, and possible recurrence. The patient didindicate an understanding of the procedure and did wish to proceed. Written consent was received. PLAN: STSG to right groin in main OR Patient will need internal medicine clearance and CXR, EKG workup Author: Miles Berkowitz MD 10/12/2019 10:21 documented in this encounter Plan of Treatment Date Type Specialty Care Team Description 10/18/2019 Office Visit Wound Care/Hyperbaric Justice Amin MD [address] [place] [address] [phone] Name Type Priority Associated Diagnoses Order Schedule CASE REQUEST OPERATING Procedures Routine Wound of right groin, Ordered: ROOM initial encounter Health Maintenance Due Date Last Done Comments [...] Diagnosis Wound of right groin, initial encounter documented in this encounter Insurance Payer Benefit Plan / Subscriber ID Effective Dates Phone Address Type Group [place] xxxxxxxx 2019-Present [place] Guarantor Name Account Type Relation to Date of Phone Billing Patient Address Iveth Dill Personal/Family [phone] (Home) [address] [place], [place] (Work) [address] documented as of this encounter Advance Directives Code Status Date Activated Date Inactivated Comments Full Code 08/25/2019 11:43 PM Does the patient have decision making capacity? No Order was discussed with: Unable to determine at this time I discussed all options and patient/surrogate Full Code requested and agreed to:
--- NOTE | 2019-11-26 13:54 | ED ---
Skin Complaint - HPI Summary HPI Summary: 49F with significant past medical history of diabetes presents to emergency department today complaining of a 1 cm in circumference scabbed wound to the posterior aspect of her head. Patient denies recent trauma. Patient states this wound has been present for approximately 4 days with pain which is made worse with touching. Patient denies discharge or fevers. Patient states this began when she "scratched a bump on my head." There is no evidence of secondary infection. Patient otherwise feels well and denies fever, chest pain , abdominal pain, pain with urination, shortness of breath. - History of Current Complaint Chief Complaint: EDGeneral Time Seen by Provider: 11/26/19 13:02 Stated Complaint: BUMP ON HEAD TURNING BLACK PER PT Hx Obtained From: Patient Onset/Duration: Started Days Ago Skin Exposure Onset/Duration: Days Ago Timing: Constant Onset Severity: Severe Current Severity: Severe Pain Intensity: 8 Pain Scale Used: 0-10 Numeric Skin Location: Discrete - posterior scalp Aggravating Symptom(s): Touch - Additional Pertinent History Primary Care Physician: STORMY - Allergy/Home Medications Allergies/Adverse Reactions: Allergies Allergy/AdvReac Type Severity Reaction Status Date / Time codeine Allergy Itching Verified 11/26/19 13:03 hydromorphone Allergy Unknown Verified 11/26/19 13:03 Reaction Details Home Medications: Home Medications Tramadol HCl 50 mg PO DAILY 11/26/19 [History Confirmed 11/26/19] PMH/Surg Hx/FS Hx/Imm Hx Endocrine/Hematology History: Reports: Hx Diabetes Denies: Hx Anticoagulant Therapy - ON HEPARIN DRIP NOW, Hx Blood Disorders, Hx Blood Transfusions, Hx Bone Marrow Disease, Hx Systemic Lupus Erythematosus, Hx Sickle Cell Disease, Hx Thyroid Disease, Hx Anemia, Hx Unexplained Bleeding, Other Endocrine/Hematological Disorders Cardiovascular History: Reports: Hx Angina, Hx Angioplasty, Hx Coronary Artery Disease, Hx Hypercholesterolemia Denies: Hx Aneurysm, Hx Auto Implanted Cardiovert Defib, Hx Cardiac Arrest, Hx Cardiomegaly, Hx Congenital Heart Disease, Hx Congestive Heart Failure, Hx Deep Vein Thrombosis, Hx Embolism, Hx Hypotension, Hx Hypertension, Hx Pacemaker /ICD, Hx Peripheral Vascular Disease, Hx Rheumatic Fever, Hx Syncope, Hx Valvular Heart Disease Respiratory History: Reports: Hx Asthma, Hx Chronic Obstructive Pulmonary Disease (COPD) Denies: Hx Chronic Bronchitis, Hx Cystic Fibrosis, Hx Lung Cancer, Hx Pleural Effusion, Hx Pneumonia, Hx Pulmonary Edema, Hx Pulmonary Embolism, Hx Seasonal Allergies, Hx Sleep Apnea GI History: Reports: Hx Gall Bladder Disease - HX YAO, Hx Gastroesophageal Reflux Disease, Other GI Disorders - GERD Denies: Hx Cirrhosis, Hx Crohn's Disease, Hx Diverticulosis, Hx Jaundice, Hx Obstructive Bowel, Hx Ileostomy, Hx Pyloric Stenosis, Hx Ulcer History: Comment Only: Hx Renal Disease - UNKNOWN Musculoskeletal History: Denies: Hx Arthritis, Hx Osteoporosis Sensory History: Reports: Hx Vision Problem Denies: Hx Cataracts, Hx Contacts or Glasses, Hx Eye Injury, Hx Eye Prosthesis, Hx Glaucoma, Hx Legally Blind, Hx Macular Degeneration, Hx Deafness , Hx Hearing Aid, Hx Hearing Problem, Other Sensory Impairments Opthamlomology History: Reports: Hx Vision Problem Denies: Hx Cataracts, Hx Contacts or Glasses, Hx Eye Injury, Hx Eye Prosthesis, Hx Glaucoma, Hx Legally Blind, Hx Macular Degeneration, Other Sensory Impairments Neurological History: Reports: Hx Headaches - "I have headaches all the time", uses ibuprofen., Hx Nerve Disease - ? takes lyrica, Hx Transient Ischemic Attacks (TIA) Denies: Hx Dementia, Hx Developmental Delay, Hx Migraine, Hx Seizures, Hx Spinal Cord Injury, Other Neuro Impairments/Disorders Psychiatric History: Reports: Hx Depression Denies: Hx Anxiety, Hx Attention Deficit Hyperactivity Disorder, Hx Panic Disorder, Hx Post Traumatic Stress Disorder, Hx Inpatient Treatment, Hx Community Mental Health Tx, Hx Schizophrenia, Hx Bipolar Disorder, Hx of Violent Episodes Against Others, Hx Substance Abuse, Other Psychiatric Issues/ Disorders - Cancer History Hx Chemotherapy: No Hx Radiation Therapy: No Hx Palliative Cancer Treatment: No - Surgical History Surgery Procedure, Year, and Place: CERVIX SCRAPPING. GALLBLADDER REMOVED. APPENDIX REMOVED. CARDIAC STENT PLACED. REMOVAL OF GALSTONES. TUBAL LIGATION Hx Anesthesia Reactions: No - Immunization History Date of Tetanus Vaccine: Unk Date of Influenza Vaccine: None; became very sick after last flu vaccine Infectious Disease History: No Infectious Disease History: Denies: Hx Clostridium Difficile, Hx Hepatitis, Hx Human Immunodeficiency Virus (HIV), Hx of Known/Suspected MRSA, Hx Shingles, Hx Tuberculosis, Hx Known/ Suspected VRE, Hx Known/Suspected VRSA, History Other Infectious Disease, Traveled Outside the [place] in Last 30 Days - Family History Known Family History: Positive: Cardiac Disease, Diabetes, Respiratory Disease, Other - lung CA - Social History Alcohol Use: Rare Substance Use Type: Reports: None Smoking Status (MU): Heavy Every Day Tobacco Smoker Type: Cigarettes Amount Used/How Often: 1 PPD Length of Time of Smoking/Using Tobacco: 25 YEARS Have You Smoked in the Last Year: Yes Review of Systems Constitutional: Negative Eyes: Negative ENT: Negative Cardiovascular: Negative Respiratory: Negative Gastrointestinal: Negative Genitourinary: Negative Musculoskeletal: Negative Positive: Rash. Negative: Bruising Neurological/Mental Status: Negative Psychological: Normal All Other Systems Reviewed And Are Negative: Yes Physical Exam - Summary Physical Exam Summary: There is a 1 cm in circumference scabbed wound to the posterior scalp with no evidence of infection. There is no induration or drainage. This appears to be an uncomplicated healing wound which is resolving. Triage Information Reviewed: Yes Vital Signs On Initial Exam: Initial Vitals Temp Pulse Resp BP Pulse Ox 97.7 F 93 16 162/87 99 11/26/19 11:42 11/26/19 11:42 11/26/19 11:42 11/26/19 11:42 11/26/19 11:42 Vital Signs Reviewed: Yes Appearance: Positive: Well-Appearing, No Pain Distress, Well-Nourished Skin: Positive: Warm, Skin Color Reflects Adequate Perfusion Eyes: Positive: EOMI, GIDEON Respiratory/Lung Sounds: Positive: Clear to Auscultation, Breath Sounds Present Cardiovascular: Positive: RRR, S1, S2 Musculoskeletal: Positive: Strength/ROM Intact Neurological: Positive: Sensory/Motor Intact, Alert, Oriented to Person Place, Time, Normal Gait, Speech Normal Psychiatric: Positive: Normal, Affect/Mood Appropriate AVPU Assessment: Alert Procedures - Sedation Patient Received Moderate/Deep Sedation with Procedure: No Diagnostics - Vital Signs Vital Signs Temp Pulse Resp BP Pulse Ox 11/26/19 11:42 97.7 F 93 16 162/87 99 - Laboratory Lab Statement: Any lab studies that have been ordered have been reviewed, and results considered in the medical decision making process. Course/Dx - Course Course Of Treatment: Patient was evaluated in the emergency department today for wound to the posterior aspect of her scalp. Vitals noted. Patient appears to have a healing wound with no evidence of secondary infection or drainage. This is an uncomplicated wound and does not require antibiotic treatment at this time. Patient is to apply antibiotic ointment or Vaseline to the wound as it heals and to keep the wound clean. Patient discharged with outpatient follow -up to PCP. - Differential Diagnoses - Skin Complaint Differential Diagnoses: Abscess, Cellulitis, Local Allergic Reaction, Tinea - Diagnoses Provider Diagnoses: Open wound of scalp Discharge ED - Sign-Out/Discharge Documenting (check all that apply): Patient Departure - Discharge Plan Condition: Stable Disposition: HOME Patient Education Materials: Acute Wound Care (ED) Referrals: Lee Hui, [Primary Care Provider] - 3 Days Additional Instructions: Please keep the area on your head moist with triple antibiotic ointment or Vaseline lotion. Please also rinse your wound with warm soapy water daily and pat dry. Please try your best to keep the area clean. Please follow-up with your primary care provider in 3-5 days for further evaluation and management. Please return to the emergency department immediately if you develop any new or worsening symptoms such as fever. - Billing Disposition and Condition Condition: STABLE Disposition: Home
[2019-11-26 14:47] VITALS: BP 120/98
== END 2019-11-26 14:10 | disposition home or self-care (01) ==
LOC: ED 11:40
DX: S01.01XA Laceration without foreign body of scalp, initial encounter (principal); E11.9 Type 2 diabetes mellitus without complications; I25.10 Atherosclerotic heart disease of native coronary artery without angina pectoris; E78.00 Pure hypercholesterolemia, unspecified; Z88.5 Allergy status to narcotic agent; X58.XXXA Exposure to other specified factors, initial encounter; Y92.9 Unspecified place or not applicable
CPT/HCPCS: 99282

== ENCOUNTER 2024-01-29 15:03 | Observation (INO) ==
[2024-01-29] MEDS: Nicotine PATCH 14 MG/24 HR PATCH TRANSDERM ONE (16:13)
[2024-01-29] MEDS ORDERED: Albuterol 2.5mg/3 ml (0.083%) NEB.SOLN INH PRN (16:20)
[2024-01-29] MEDS ORDERED: Dextrose 50% Syringe 50 ml 25 GM/50 ML SYRINGE IV PUSH PRN (17:06)
[2024-01-29 17:41] LABS: High Sensitivity Troponin 1 Hr 138 pg/mL (<15)
[2024-01-29 17:51] LABS: HDL Cholesterol 38.4 mg/dL
[2024-01-29] MEDS: Enoxaparin 40 MG/0.4 ML SYR SUBCUT SCH (18:30)
[2024-01-29] MEDS: Albuterol HFA INHALER 8 gm MDI INH SCH (18:30)
[2024-01-30 02:13] LABS: Creatinine, Serum 1.08 mg/dL (0.51-0.95); Potassium 3.8 mmol/L (3.5-5.0); eGFR CKD-EPI 61.4 (>60)
[2024-01-30 05:03] VITALS: BP 147/68
[2024-01-30 06:11] LABS: ABS Basophils 0.1 10^3/uL (0.0-0.1); ABS Eosinophils 0.3 10^3/uL (0.0-0.5); ABS Lymphocytes 2.6 10^3/uL (1.0-4.8); ABS Monocytes 0.6 10^3/uL (0.0-0.9); ABS Neutrophils 4.1 10^3/uL (1.5-7.6); ABS Nucleated RBC 0.01 10^3/ul; Eosinophil % 3.7 %; Hematocrit 35.8 % (35-45); Hemoglobin 12.2 g/dL (11.5-14.3); Lymphocyte % 33.7 %; Mean Corpuscular Hemoglobin 30.3 pg (27-33); Mean Corpuscular Volume 89.1 fL (80-97); Mean Platelet Volume 8.8 fL (7.5-11.2); Nucleated Red Blood Cells % 0.1 %/100WBC (0.0-0.8); Platelet Count 270 10^3/uL (150-450); Red Blood Count 4.01 10^6/uL (3.63-4.92); Red Cell Distribution Width 14.2 % (12-17); White Blood Count 7.6 10^3/uL (3.8-11.8)
[2024-01-30] MEDS ORDERED: Regadenoson 0.4 MG/5 ML SYRINGE ONE (08:36)
[2024-01-30] MEDS: Aspirin EC 81 mg TAB.EC (enteric coated) PO SCH (11:15)
[2024-01-30] MEDS: Empagliflozin 25 MG TAB PO SCH (11:15)
[2024-01-30] MEDS: Nicotine PATCH 21 MG/24 HR PATCH TRANSDERM SCH (11:57)
[2024-01-30] MEDS: Iodixanol (CONTRAST) 320 MG/ML 100 ML SDV IV ONE (11:59)
== END 2024-01-30 13:50 | disposition home or self-care (01) ==
LOC: EDHOLD 15:03 → ED 15:03 → SUATTDRO 16:16 → MEDTELE 19:39
PROVIDERS: ADMIT Internal Medicine; ATTEND Hospitalist